=== PATIENT | male | born 1940 | race Caucasian/White ===

== ENCOUNTER 2018-07-04 18:17 | Emergency (ER) | payer OTHER, BC ==
--- OUTSIDE RECORDS SUMMARY | 2018-07-04 18:20 | XMS REPORT | Clinical Summary ---
:1940 Author Organization [facility] Address [address] [place] [id number] Care Team Providers Name Role Phone Edson Bush MD Primary Care Provider Allergies No Known Allergies Current Medications Prescription Sig. Disp. Refills Start Date End Date Status ranolazine (RANEXA) Take 1,000 mg by Active 1,000 mg 12 hr tablet mouth 2 (two) times a day. clopidogrel (PLAVIX) 75 Take 75 mg by mouth Active mg tablet daily. carvedilol (COREG) 25 MG Take 25 mg by mouth Active tablet once. amIODarone (PACERONE) Take 200 mg by mouth Active 200 MG tablet daily. colestipol (COLESTID) 1 Take 1 g by mouth 2 Active gram tablet (two) times a day. PARoxetine (PAXIL) 10 MG Take 40 mg by mouth Active tablet every morning. digOXIN (LANOXIN) 125 Take 125 mcg by Active mcg tablet mouth daily. gabapentin (NEURONTIN) Take 300 mg by mouth Active 300 mg capsule nightly. diazePAM (VALIUM) 5 MG Take 5 mg by mouth Active tablet nightly as needed for anxiety. losartan-hydrochlorothia Take 0.5 tablets by Active zide (HYZAAR) 100-12.5 mouth 2 (two) times mg per tablet a day. acetaminophen-codeine Take 1 tablet by Active (TYLENOL WITH CODEINE mouth every 4 (four) #4) 300-60 mg per tablet hours as needed for moderate pain. Active Problems Not on file Encounters Date Type Specialty Care Team Description 10/09/2017 Hospital Encounter Procedural Rico Solorzano Artificial cardiac Cardiology Timmy Morrison MD pacemaker 10/09/2017 Procedure Pass Procedural Cardiology 10/09/2017 Surgery Procedural Rico Solorzano Ep remove replace Cardiology Timmy Morrison MD pacemaker generator dual [employer] [13119 (CPT)] after 07/03/2017 Social History Tobacco Use Types Packs/Day Years Used Date Current Every Day Smoker Cigarettes 0.75 50 Tobacco Cessation: Ready to Quit: No; Counseling Given: Yes Alcohol Use Drinks/Week oz/Week Comments No Sex Assigned at Date Recorded Not on file Last Filed Vital Signs Vital Sign Reading Time Taken Blood Pressure 164/79 10/09/2017 5:30 PM SIGN ERECTOR AND REPAIRER Pulse 65 10/09/2017 5:30 PM SIGN ERECTOR AND REPAIRER Temperature 35.9 C (96.7 F) 10/09/2017 1:43 PM SIGN ERECTOR AND REPAIRER Respiratory Rate 22 10/09/2017 5:30 PM SIGN ERECTOR AND REPAIRER Oxygen Saturation 95% 10/09/2017 5:30 PM SIGN ERECTOR AND REPAIRER Inhaled Oxygen Concentration - - Weight 112 kg (248 lb) 10/09/2017 12:31 PM SIGN ERECTOR AND REPAIRER Height 185.4 cm (6' 1") 10/09/2017 12:31 PM SIGN ERECTOR AND REPAIRER Body Mass Index 32.72 10/09/2017 12:31 PM SIGN ERECTOR AND REPAIRER Plan of Treatment Not on file Implants Implanted Type Area Silver Wrapper Device Expiration Model / Identifier Date Serial / Lot Assurity Rf Dr - [id number] - [id number] Cardiac N/A: [employer] 03/25/2019 [id number] / Implanted: Qty: 1 on 10/09/2017 by Rico Solorzano Jr., MD Pacemaker N/A MEDICAL [id number] / Generators [id number] Procedures Procedure Name Priority Date/Time Associated Comments Diagnosis EP REMOVE REPLACE Routine 10/09/2017 3:11 Artificial cardiac Results for this PACEMAKER GENERATOR PM SIGN ERECTOR AND REPAIRER pacemaker procedure are in DUAL the results section. ESTIMATED GFR Routine 10/09/2017 12:17 Results for this PM SIGN ERECTOR AND REPAIRER procedure are in the results section. PROTHROMBIN TIME WITH Routine 10/09/2017 12:17 Results for this INR PM SIGN ERECTOR AND REPAIRER procedure are in the results section. HC COMPLETE BLD COUNT Routine 10/09/2017 12:17 Results for this W/AUTO DIFF PM SIGN ERECTOR AND REPAIRER procedure are in the results section. BASIC METABOLIC PANEL Routine 10/09/2017 12:17 Results for this PM SIGN ERECTOR AND REPAIRER procedure are in the results section. after 07/03/2017 Results Cv electrophysiology procedure (10/09/2017 3:11 PM) Narrative Performed At Leads interrogated and functioning normally. HM CUPID A new [employer] generator attached and placed into the pocket after dissection and removal of the old device. Performing Organization Address [facility]/Zipcode Phone Number CUPID [id number] [place] [address] Estimated GFR (10/09/2017 12:17 PM) GFR Non Af Amer 49 (A) mL/min/1.73 m2 [facility] DEPARTMENT OF PATHOLOGY AND GENOMIC MEDICINE GFR Af Amer 60 mL/min/1.73 m2 [facility] DEPARTMENT OF Comment: PATHOLOGY AND GENOMIC Chronic kidney disease: <60 mL/min/1.73m2 MEDICINE Kidney failure: <15 mL/min/1.73m2 The estimated GFR is calculated from the IDMS-traceable Modification of Diet in Renal Disease Equation. The accuracy of the calculation is poor when the creatinine is normal. Calculated values >90 mL/min/1.73m2 are not reported. This equation has not been validated in children (<18 years), women, the elderly (>70 years), or ethnic groups other than Caucasians and Americans. Specimen Plasma specimen Performing Organization Address [facility] Phone Number [facility] DEPARTMENT OF PATHOLOGY [address] [place], [place] [id number] [place] [address] Prothrombin time with INR (10/09/2017 12:17 PM) Prothrombin time 12.8 12.0 - 15.0 sec [facility] DEPARTMENT OF PATHOLOGY AND GENOMIC MEDICINE INR 1.0 [facility] DEPARTMENT OF Comment: PATHOLOGY AND GENOMIC The International Normalized Ratio (INR) is a therapeutic MEDICINE monitoring tool for patients who are stable on oral anticoagulant therapy. An INR of 2.0-3.0 is suggested for deep vein thrombosis/pulmonary embolism. Specimen Blood Performing Organization Address [facility] Phone Number [facility] DEPARTMENT OF PATHOLOGY [address] [place] [address] AND [facility] CBC with platelet and differential (10/09/2017 12:17 PM) WBC 6.8 4.5 - 11.0 k/uL [facility] DEPARTMENT OF PATHOLOGY AND GENOMIC MEDICINE RBC 4.31 (L) 4.40 - 6.00 m/uL [facility] DEPARTMENT OF PATHOLOGY AND GENOMIC MEDICINE HGB 13.5 (L) 14.0 - 18.0 g/dL [facility] DEPARTMENT OF PATHOLOGY AND GENOMIC MEDICINE HCT 42.2 41.0 - 51.0 % [facility] DEPARTMENT OF PATHOLOGY AND GENOMIC MEDICINE MCV 97.9 82.0 - 100.0 fL [facility] DEPARTMENT OF PATHOLOGY AND GENOMIC MEDICINE MCH 31.3 27.0 - 34.0 pg [facility] DEPARTMENT OF PATHOLOGY AND GENOMIC MEDICINE MCHC 32.0 31.0 - 37.0 g/dL [facility] DEPARTMENT OF PATHOLOGY AND GENOMIC MEDICINE RDW - SD 46.0 37.0 - 55.0 fL [facility] DEPARTMENT OF PATHOLOGY AND GENOMIC MEDICINE MPV 10.4 6.9 - 11.0 fL [facility] DEPARTMENT OF PATHOLOGY AND GENOMIC MEDICINE Platelet count 164 150 - 400 K/uL [facility] DEPARTMENT OF PATHOLOGY AND GENOMIC MEDICINE Nucleated RBC 0.00 /100 WBC [facility] DEPARTMENT OF PATHOLOGY AND GENOMIC MEDICINE Neutrophils 59.7 39.0 - 69.0 % [facility] DEPARTMENT OF PATHOLOGY AND GENOMIC MEDICINE Lymphocytes 21.4 (L) 25.0 - 45.0 % [facility] DEPARTMENT OF PATHOLOGY AND GENOMIC MEDICINE Monocytes 13.8 (H) 0.0 - 10.0 % [facility] DEPARTMENT OF PATHOLOGY AND GENOMIC MEDICINE Eosinophils 3.5 0.0 - 5.0 % [facility] DEPARTMENT OF PATHOLOGY AND GENOMIC MEDICINE Basophils 1.0 0.0 - 1.0 % [facility] DEPARTMENT OF PATHOLOGY AND GENOMIC MEDICINE Immature granulocytes 0.6 0.0 - 1.0 % [facility] DEPARTMENT OF PATHOLOGY AND GENOMIC MEDICINE Specimen Blood Performing Organization Address City/State/Zipcode Phone Number [facility] DEPARTMENT OF PATHOLOGY [address] [place] [address] AND [employer] [facility] Basic metabolic panel (10/09/2017 12:17 PM) Sodium 146 135 - 148 mEq/L [facility] DEPARTMENT OF PATHOLOGY AND GENOMIC MEDICINE Potassium 4.2 3.5 - 5.0 mEq/L [facility] DEPARTMENT OF PATHOLOGY AND GENOMIC MEDICINE Chloride 103 98 - 112 mEq/L [facility] DEPARTMENT OF PATHOLOGY AND GENOMIC MEDICINE CO2 32 (H) 24 - 31 mEq/L [facility] DEPARTMENT OF PATHOLOGY AND GENOMIC MEDICINE Anion gap 11 7 - 15 mEq/L [facility] DEPARTMENT OF Comment: PATHOLOGY AND GENOMIC Starting from February , anion gap calculation MEDICINE no longer incorporates potassium. Please note the change. BUN 24 (H) 8 - 23 mg/dL [facility] DEPARTMENT OF PATHOLOGY AND GENOMIC MEDICINE Creatinine 1.4 (H) 0.7 - 1.2 mg/dL [facility] DEPARTMENT OF PATHOLOGY AND GENOMIC MEDICINE Glucose 103 (H) 65 - 99 mg/dL [facility] DEPARTMENT OF PATHOLOGY AND GENOMIC MEDICINE Calcium 9.8 8.8 - 10.2 mg/dL [facility] DEPARTMENT OF PATHOLOGY AND GENOMIC MEDICINE Specimen Plasma specimen Performing Organization Address City/State/Zipcode Phone Number [facility] DEPARTMENT OF PATHOLOGY [address] [address] [place] [address] AND GENOMIC MEDICINE after 07/03/2017 Insurance Payer Benefit Plan / Group Subscriber ID Type Phone Address MEDICARE MEDICARE PART A AND B xxxxxxxxxx Medicare [place], [place] BCBS BCBS CHOICE PPO/[employer] PPO xxxxxxxxxxxx PPO [phone] [place] [id number]
[2018-07-04] MEDS ORDERED: ASPIRIN 81 MG CHEWABLE TABLET ONE (18:33)
[2018-07-04] MEDS ORDERED: ONDANSETRON 4 MG/2 ML VIAL ONE (18:34)
[2018-07-04] MEDS ORDERED: MORPHINE 4 MG/ML SYR ONE (18:34)
[2018-07-04 18:48] LABS: Absolute Lymphocytes (CBC) 1.8 K/uL (0.7-4.9); Absolute Monocytes 0.8 K/uL (0.1-1.3); Absolute Neutrophil 4.4 K/uL (1.8-8.0); Basophils % 0.7 % (0-1.3); Eosinophils % 1.7 % (0-4.4); Hematocrit 42.5 % (39.6-49.0); Lymphocytes % 24.8 % (15.3-44.8); MCH 32.2 pg (27.0-35.0); MCV 96.9 fL (80-100); MPV 9.9 fL (7.6-11.3); Monocytes % 11.4 % (3.3-12.3); RBC Red Blood Cell Count 4.39 M/uL (4.33-5.43)
[2018-07-04] MEDS ORDERED: NITROGLYCERIN/D5W 50 MG/250 ML BTL IV ONE (19:13)
[2018-07-04 19:41] LABS: CKMB Creatine Kinase MB 1.5 ng/mL (0.3-3.6); Magnesium 2.3 mg/dL (1.8-2.4)
--- NOTE | 2018-07-04 20:17 | RAD REPORT ---
EXAM DESCRIPTION: Maryellen Single View07/04/2018 7:07 pm CLINICAL HISTORY: Chest pain COMPARISON: January 2018 FINDINGS: The lungs appear clear of acute infiltrate. The heart is normal size. Pacemaker leads are in place. IMPRESSION: No acute abnormalities displayed
--- NOTE | 2018-07-04 21:52 | ER ---
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 Hx of NC and stent placement. Transition of care: patient was not received from another setting of care. Onset of symptoms was July 04, 2018. Risk Assessment: Do you want to hurt yourself or someone else? Patient reports no desire to harm self or others. Initial Sepsis Screen: Does the patient meet any 2 criteria? No. Patient's initial sepsis screen is negative. Does the patient have a suspected source of infection? No. Patient's initial sepsis screen is negative. Care prior to arrival: None. 18:39 Method Of Arrival: Ambulatory la1 18:39 Acuity: GLENN 2 la1 Historical: - Allergies: 18:42 No Known Allergies; la1 - Home Meds: 18:42 carvedilol 25 mg Oral tab 1 tab 2 times per day [Active]; diazepam 5 mg Oral tab 1 tab la1 as needed [Active]; gabapentin 300 mg Oral cap 1 cap two times per day [Active]; mirtazapine 15 mg Oral TbDL 1 tab bedtime prn [Active]; pantoprazole 40 mg Oral TbEC 1 tab once daily [Active]; paroxetine HCl 40 mg Oral tab 1 tab once daily [Active]; Plavix 75 mg Oral tab 1 tab once daily [Active]; Ranexa 1,000 mg Oral Tb12 1 tab 2 times per day [Active]; sotalol 80 mg Oral tab 1 tab 2 times per day [Active]; Tylenol-Codeine #4 300-60 mg Oral tab 1 tab QID PRN [Active]; valsartan 160 mg Oral tab 1 tab once daily [Active]; Vitamin D 5000 units Oral daily [Active]; - PMHx: 18:42 CHF; Chronic pain; GERD; Hypertension; irregular heart beat; neuropathy; la1 - PSHx: 18:42 stent placement x 2; la1 - Immunization history:: Adult Immunizations up to date. - Social history:: Smoking status: Patient uses tobacco products, smokes one-half pack cigarettes per day. - Family history:: not pertinent. - Ebola Screening: : No symptoms or risks identified at this time. - Hospitalizations: : No recent hospitalization is reported. Screenin:43 Abuse screen: Denies threats or abuse. Nutritional screening: No deficits noted. la1 Tuberculosis screening: No symptoms or risk factors identified. Fall Risk None identified. Assessment: 18:43 Tenecteplase (TNKase) screening: Contraindications: No EKG evidence of Acute Myocardial la1 Infarction with ST elevation. General: Appears uncomfortable, well nourished, Behavior is cooperative, anxious. Pain: Complains of pain in chest Pain radiates to right arm and left arm Pain currently is 6 out of 10 on a pain scale. Quality of pain is described as pressure Pain began 30 min ago. Neuro: Level of Consciousness is awake, alert, obeys commands, Oriented to person, place, time, situation. Cardiovascular: Heart tones S1 S2 present Capillary refill < 3 seconds JVD is absent Patient's skin is warm and dry. Respiratory: Airway is patent Respiratory effort is even, unlabored, Respiratory pattern is regular, symmetrical, Breath sounds are clear bilaterally. GI: No signs and/or symptoms were reported involving the gastrointestinal system. : No signs and/or symptoms were reported regarding the genitourinary system. 19:20 General: Appears in no apparent distress. Behavior is calm, cooperative, appropriate ea for age. General: Physician at bedside updating family on plan of care. Pt denies pain at this time. Physician notified of pt blood pressure. Provider gave orders to place nitro drip on hold. . General: Denies patient denies pain at this time, reports earlier he was having some chest pain but is feeling better now. Pain: Denies pain. Neuro: Level of Consciousness is awake, alert, obeys commands, Oriented to person, place, time, situation. Cardiovascular: Heart tones S1 S2 present Patient's skin is warm and dry. Respiratory: Airway is patent Respiratory effort is even, unlabored, Respiratory pattern is regular, symmetrical. GI: No signs and/or symptoms were reported involving the gastrointestinal system. Bowel sounds present X 4 quads. : No signs and/or symptoms were reported regarding the genitourinary system. Derm: Skin is pink, warm \T\ dry. 20:01 Reassessment: Patient and/or family updated on plan of care and expected duration. Pain ea level reassessed. Patient is alert, oriented x 3, equal unlabored respirations, skin warm/dry/pink. Patient denies pain at this time. 21:04 Reassessment: Patient and/or family updated on plan of care and expected duration. Pain ea level reassessed. Patient is alert, oriented x 3, equal unlabored respirations, skin warm/dry/pink. 22:11 Reassessment: Patient and/or family updated on plan of care and expected duration. Pain ea level reassessed. Patient is alert, oriented x 3, equal unlabored respirations, skin warm/dry/pink. Physician at bedside, pt reports he does not want to stay at the hospital states he wants to go AMA. Verbalized the understanding of possible adverse effects of going AMA. Verbalized the understanding if symptoms occur again to come back to ED. Patient verbalized he would follow up with press breaker tomorrow. Patient denies pain at this time. Patient states feeling better. Patient states symptoms have improved. Vital Signs: 18:40 BP 187 / 87; Pulse 61; Resp 16; Temp 97.9; Pulse Ox 96% on R/A; la1 19:06 BP 167 / 92; Pulse 63; Resp 18; Pulse Ox 95% ; ea 19:13 Weight 107.5 kg; ms 19:53 BP 170 / 88; Pulse 60; Resp 16; Pulse Ox 95% on 2 lpm NC; Pain 0/10; ea 21:01 BP 158 / 77; Pulse 60; Resp 18; Pulse Ox 98% on R/A; ea 22:00 BP 168 / 70; Pulse 60; Resp 18; Temp 97.7; Pulse Ox 100% on R/A; Pain 0/10; ea ED Course: 18:20 Patient arrived in ED. mr 18:20 Edson Bush MD is Private Physician. mr 18:21 [facility] Blanco [facility]. jr8 18:21 Clinton Rick MD is Attending Physician. jr8 18:29 EKG done, by ED staff, reviewed by Clinton Rick MD. jb1 18:37 Fernando Sweet, [place] is Primary Nurse. la1 18:39 Triage completed. la1 18:40 Arm band placed on left wrist. la1 18:43 Inserted saline lock: 20 gauge in right antecubital area, using aseptic technique. la1 Patient maintains SpO2 saturation greater than 95% on room air. 18:44 Placed in gown. Bed in low position. Call light in reach. Side rails up X 1. Adult w/ la1 patient. metal fabricating inspector on. Pulse ox on. NIBP on. 19:05 XRAY Chest (1 view) In Process Unspecified. EDMS 19:10 Attending Physician role handed off by Clinton Rick MD pk 19:10 Cristi Cardenas MD is Attending Physician. pkl 22:16 No provider procedures requiring assistance completed. IV discontinued, intact, ea bleeding controlled, No redness/swelling at site. Pressure dressing applied. Administered Medications: 18:38 Drug: morphine 4 mg Route: IVP; Site: right antecubital; la1 19:02 Follow up: Response: Pain is decreased jb4 18:38 Drug: Zofran 4 mg Route: IVP; Site: right antecubital; la1 19:02 Follow up: Response: Nausea is decreased jb4 18:38 Drug: Aspirin Chewable Tablet 324 mg Route: PO; la1 19:02 Follow up: Response: No adverse reaction jb4 19:41 Not Given (Hemodynamic Parameters): Nitro Drip - (Nitroglycerin 50 mg, D5W 250 ml) IV ea at 5 mcg/min continuous; titrate until desired hemodynamic response. Outcome: 21:52 Discharge ordered by . pkloida 22:16 AMA AMA form signed ea 22:17 Patient left the ED. ea Signatures: Dispatcher [employer] EDNE Michel Artis Pin, MD MD pkl Rivera, Maria Zully Lieberman Clinton Lockett MD MD rn Roszak, Josh, PA PA jr8 Fernando Sweet RN RN la1 Lee Rudd RN RN jb4 Maribel Jaimes RN RN ea Corrections: (The following items were deleted from the chart) 22:14 22:11 Reassessment: Patient and/or family updated on plan of care and expected ea duration. Pain level reassessed. Patient is alert, oriented x 3, equal unlabored respirations, skin warm/dry/pink. Physician at bedside, pt reports he does not want to stay at the hospital states he wants to go AMA. Patient denies pain at this time. Patient states feeling better. Patient states symptoms have improved. ea
--- NOTE | 2018-07-04 21:52 | EDPHYS ---
Physician Documentation [facility] Name: Óscar Rivera Age: 77 yrs Sex: Male : 1940 Arrival Date: 07/04/2018 Time: 18:20 Bed 6 Private MD: Edson Bush V ED Physician Cristi Cardenas HPI: 07/04 18:29 This 77 yrs old Male presents to ER via Unassigned with complaints of Chest rn Pain. 18:29 The patient or guardian reports chest pain that is located primarily in the substernal rn area. Onset: last night. The pain radiates to the left arm. Associated signs and symptoms: Pertinent positives: shortness of breath, Pertinent negatives: abdominal pain, headache, near syncope, palpitations, recent travel, syncope. The chest pain is described as a pressure. Duration: The patient or guardian reports multiple episodes, that are intermittent. Modifying factors: The symptoms are alleviated by nothing. the symptoms are aggravated by nothing. Severity of pain: At its worst the pain was moderate in the emergency department the pain is unchanged. The patient has experienced similar episodes in the past. REports angina episodes since last night, improved with nitro last night, today very active, shopping, has had intermittent chest pressure that radiates to left arm, lasting approx 20 min - 1hour, then became worse and constant over last 40 min, 2 nitro did not help so came in for eval. + 3 previous stents at [facility] and was told there was one vessel that was unable to stent. Normally only has these anginal episodes once/month. + assoc sob. No fever/cough.. Historical: - Allergies: 18:42 No Known Allergies; la1 - Home Meds: 18:42 carvedilol 25 mg Oral tab 1 tab 2 times per day [Active]; diazepam 5 mg Oral tab 1 tab la1 as needed [Active]; gabapentin 300 mg Oral cap 1 cap two times per day [Active]; mirtazapine 15 mg Oral TbDL 1 tab bedtime prn [Active]; pantoprazole 40 mg Oral TbEC 1 tab once daily [Active]; paroxetine HCl 40 mg Oral tab 1 tab once daily [Active]; Plavix 75 mg Oral tab 1 tab once daily [Active]; Ranexa 1,000 mg Oral Tb12 1 tab 2 times per day [Active]; sotalol 80 mg Oral tab 1 tab 2 times per day [Active]; Tylenol-Codeine #4 300-60 mg Oral tab 1 tab QID PRN [Active]; valsartan 160 mg Oral tab 1 tab once daily [Active]; Vitamin D 5000 units Oral daily [Active]; - PMHx: 18:42 CHF; Chronic pain; GERD; Hypertension; irregular heart beat; neuropathy; la1 - PSHx: 18:42 stent placement x 2; la1 - Immunization history:: Adult Immunizations up to date. - Social history:: Smoking status: Patient uses tobacco products, smokes one-half pack cigarettes per day. - Family history:: not pertinent. - Ebola Screening: : No symptoms or risks identified at this time. - Hospitalizations: : No recent hospitalization is reported. ROS: 18:29 Constitutional: Negative for fever, chills, and weight loss, Eyes: Negative for injury, rn pain, redness, and discharge, Neck: Negative for injury, pain, and swelling, Cardiovascular: Negative for palpitations, and edema, Respiratory: Negative for shortness of breath, cough, wheezing, and pleuritic chest pain, Abdomen/GI: Negative for abdominal pain, nausea, vomiting, diarrhea, and constipation, MS/Extremity: Negative for injury and deformity, Skin: Negative for injury, rash, and discoloration, Neuro: Negative for headache, weakness, and seizure. Exam: 18:29 Constitutional: This is a well developed, well nourished patient who is awake, alert, rn appears anxious and uncomfortable Head/Face: Normocephalic, atraumatic. Eyes: Pupils equal round and reactive to light, extra-ocular motions intact. Lids and lashes normal. Conjunctiva and sclera are non-icteric and not injected. Cornea within normal limits. Periorbital areas with no swelling, redness, or edema. Neck: + recent dermatological procedure with ecchymosis under jaw Cardiovascular: Regular rate and rhythm with a normal S1 and S2. No gallops, murmurs, or rubs. Normal PMI, no JVD. No pulse deficits. Respiratory: Lungs have equal breath sounds bilaterally, clear to auscultation and percussion. No rales, rhonchi or wheezes noted. No increased work of breathing, no retractions or nasal flaring. Abdomen/GI: Soft, non-tender, with normal bowel sounds. No distension or tympany. No guarding or rebound. No evidence of tenderness throughout. MS/ Extremity: Pulses equal, no cyanosis. Neurovascular intact. Full, normal range of motion. Equal circumference. Neuro: Awake and alert, GCS 15, oriented to person, place, time, and situation. Cranial nerves II-XII grossly intact. Motor strength 5/5 in all extremities. Sensory grossly intact. Vital Signs: 18:40 BP 187 / 87; Pulse 61; Resp 16; Temp 97.9; Pulse Ox 96% on R/A; la1 19:06 BP 167 / 92; Pulse 63; Resp 18; Pulse Ox 95% ; ea 19:13 Weight 107.5 kg; ms 19:53 BP 170 / 88; Pulse 60; Resp 16; Pulse Ox 95% on 2 lpm NC; Pain 0/10; ea 21:01 BP 158 / 77; Pulse 60; Resp 18; Pulse Ox 98% on R/A; ea 22:00 BP 168 / 70; Pulse 60; Resp 18; Temp 97.7; Pulse Ox 100% on R/A; Pain 0/10; ea MDM: 18:21 Patient medically screened. jr8 19:47 Data reviewed: vital signs, nurses notes, lab test result(s), EKG, radiologic studies, pkl plain films. ED course: Advised observation. Patient wants to be transferred to [facility] where his primary care coordinator practice. No bed available at [facility].. 21:49 ED course: Patient feeling better. Asymptomatic. Does not want to be admitted for pkl observation. Will see his primary care coordinator in the morning for follow up. Patient sign AMA. 07/04 18:29 Order name: Basic Metabolic Panel; Complete Time: 19:51 rn 07/04 18:29 Order name: CBC with Diff; Complete Time: 19:13 rn 07/04 18:29 Order name: Ckmb; Complete Time: :51 rn 07/04 18:29 Order name: CPK; Complete Time: :51 rn 07/04 18:29 Order name: Magnesium; Complete Time: 19:51 rn 07/04 18:29 Order name: NT PRO-BNP; Complete Time: 19:51 rn 07/04 18:29 Order name: PT-INR; Complete Time: 19:13 rn 08/09 18:29 Order name: Ptt, Activated; Complete Time: 19:13 rn 07/04 18:29 Order name: Troponin (emerg Dept Use Only); Complete Time: 19:13 rn 07/04 18:29 Order name: XRAY Chest (1 view); Complete Time: 21:45 rn 07/04 20:34 Order name: Troponin (emerg Dept Use Only); Complete Time: 21:45 pkl 07/04 18:29 Order name: EKG; Complete Time: 18:29 rn 07/04 18:29 Order name: Cardiac monitoring; Complete Time: 18:29 rn 07/04 18:29 Order name: EKG - Nurse/Tech; Complete Time: 18:29 rn 07/04 18:29 Order name: IV Saline Lock; Complete Time: 18:38 rn 07/04 18:29 Order name: Labs collected and sent; Complete Time: 18:39 rn 07/04 18:29 Order name: O2 Per Protocol; Complete Time: 18:29 rn 07/04 18:29 Order name: O2 Sat Monitoring; Complete Time: 18:29 rn 07/04 20:34 Order name: EKG; Complete Time: 20:34 pkl Administered Medications: 18:38 Drug: morphine 4 mg Route: IVP; Site: right antecubital; la1 19:02 Follow up: Response: Pain is decreased jb4 18:38 Drug: Zofran 4 mg Route: IVP; Site: right antecubital; la1 19:02 Follow up: Response: Nausea is decreased jb4 18:38 Drug: Aspirin Chewable Tablet 324 mg Route: PO; la1 19:02 Follow up: Response: No adverse reaction jb4 19:41 Not Given (Hemodynamic Parameters): Nitro Drip - (Nitroglycerin 50 mg, D5W 250 ml) IV ea at 5 mcg/min continuous; titrate until desired hemodynamic response. Disposition: 07/04/18 21:52 Discharged to Home. Impression: Chest pain. - Condition is Stable. - Medication Reconciliation Form, Thank You Letter, Antibiotic Education, Prescription Opioid Use form. - Follow up: Private Physician; When: Tomorrow; Reason: Re-evaluation by your physician. - Problem is new. - Symptoms are resolved. Signatures: Dispatcher MedHo Cristi Christina MD MD pkClinton Godinez MD MD rn Roszak, Josh, FATIMAH PA jr8 Fernando Sweet RN RN la1 Maribel Jaimes RN RN ea Bryson, James RN jb4 Corrections: (The following items were deleted from the chart) 18:32 18:29 Constitutional: Negative for fever, chills, and weight loss, Eyes: Negative for rn injury, pain, redness, and discharge, Neck: Negative for injury, pain, and swelling, Cardiovascular: Negative for palpitations, and edema, Respiratory: Negative for shortness of breath, cough, wheezing, and pleuritic chest pain, Abdomen/GI: Negative for abdominal pain, nausea, vomiting, diarrhea, and constipation, MS/Extremity: Negative for injury and deformity, Skin: Negative for injury, rash, and discoloration, Neuro: Negative for headache, weakness, numbness, tingling, and seizure, rn 22:17 21:52 07/04/2018 21:52 Discharged to Home. Impression: Chest pain. Condition is Stable. ea Forms are Medication Reconciliation Form, Thank You Letter, Antibiotic Education, Prescription Opioid Use. Follow up: Private Physician; When: Tomorrow; Reason: Re-evaluation by your physician. Problem is new. Symptoms are resolved. pkl
[2018-07-04 22:58] VITALS: BP 168/70; TEMP 97.7; O2SAT 100
--- NOTE | 2018-07-05 08:19 | EKG ---
Test Date: 2018-07-04 Test Time: 21:53:12 Curing Bin Operator: VIET MEASUREMENT RESULTS: Intervals: Rate: 61 WA: 200 QRSD: 200 QT: 500 QTc: 503 [place]: P: 37 WA: 200 QRS: -74 T: 90 INTERPRETIVE STATEMENTS: Atrial-sensed ventricular-paced rhythm Abnormal ECG Compared to ECG 01/28/2018 20:34:03 No significant changes Electronically Signed On 07-05-18 08:18:35 CDT by Vikash Canas
--- NOTE | 2018-07-05 08:20 | EKG ---
Test Date: 2018-07-04 Test Time: 18:19:49 Nurse Emergency: MEASUREMENT RESULTS: Intervals: Rate: 63 MT: 224 QRSD: 156 QT: 446 QTc: 456 [place]: P: 54 MT: 224 QRS: -74 T: 103 INTERPRETIVE STATEMENTS: Atrial-sensed ventricular-paced rhythm with prolonged AV conduction with occasional atrial-paced complexes Abnormal ECG Compared to ECG 01/28/2018 20:34:03 No significant changes Electronically Signed On 07-05-18 08:20:05 CDT by Vikash Canas
== END 2018-07-04 22:17 | disposition home or self-care (01) ==
LOC: ER 18:17
DX: R07.9 Chest pain, unspecified (principal); I11.0 Hypertensive heart disease with heart failure; I50.9 Heart failure, unspecified; G89.29 Other chronic pain; K21.9 Gastro-esophageal reflux disease without esophagitis; G62.9 Polyneuropathy, unspecified; F17.210 Nicotine dependence, cigarettes, uncomplicated
CPT/HCPCS: 36415; 71045; 80048; 82550; 82553; 83735; 83880; 84484 ×2; 85025; 85610; 85730; J2405; 93005; 96374; 96375; 99285

== ENCOUNTER 2018-07-17 01:04 | Observation (INO) | payer OTHER, BC ==
--- OUTSIDE RECORDS SUMMARY | 2018-07-17 01:06 | XMS REPORT | Clinical Summary ---
:1940 Author Organization [facility] Address [address] [place] [id number] Care Team Providers Name Role Phone Edson [...] Encounters Date Type Specialty Care Team Description 07/04/2018 Intake Access N/A 10/09/2017 Hospital Encounter Procedural Rico Solorzano Artificial cardiac Cardiology Timmy Morrison MD pacemaker 10/09/2017 Procedure Pass Procedural Cardiology 10/09/2017 Surgery Procedural Rico Solorzano Ep remove replace Cardiology Timmy Morrison MD pacemaker generator dual [employer] [63012 (CPT)] after 07/16/2017 Social History Tobacco Use Types Packs/Day Years Used Date Current Every Day Smoker Cigarettes 0.75 50 Tobacco Cessation: Ready to Quit: No; Counseling Given: Yes Alcohol Use Drinks/Week oz/Week Comments No Sex Assigned at Date Recorded Not on file Last Filed Vital Signs Vital Sign Reading Time Taken Blood Pressure 164/79 10/09/2017 5:30 PM [employer] Pulse 65 10/09/2017 5:30 PM [employer] Temperature 35.9 C (96.7 F) 10/09/2017 1:43 PM [employer] Respiratory Rate 22 10/09/2017 5:30 PM [employer]ER Oxygen Saturation 95% 10/09/2017 5:30 PM [employer] Inhaled Oxygen Concentration - - Weight 112 kg (248 lb) 10/09/2017 12:31 PM [employer] Height 185.4 cm (6' 1") 10/09/2017 12:31 PM [employer] Body Mass Index 32.72 10/09/2017 12:31 PM [employer]ER Plan of Treatment Not on file Implants Implanted Type Area Bank Teller Machine Mechanic Device Expiration Model / Identifier Date Serial / Lot Assurity Rf Dr - [id number] - [id number] Cardiac N/A: [employer] 03/25/2019 [id number] / Implanted: Qty: 1 on 10/09/2017 by Rico Solorzano Jr., MD Pacemaker N/A MEDICAL [id number] / Generators [id number] Procedures Procedure Name Priority Date/Time Associated Comments Diagnosis EP REMOVE REPLACE Routine 10/09/2017 3:11 Artificial cardiac Results for this PACEMAKER GENERATOR PM [employer] pacemaker procedure are in DUAL the results section. ESTIMATED GFR Routine 10/09/2017 12:17 Results for this PM [employer] procedure are in the results section. PROTHROMBIN TIME WITH Routine 10/09/2017 12:17 Results for this INR PM [employer] procedure are in the results section. HC COMPLETE BLD COUNT Routine 10/09/2017 12:17 Results for this W/AUTO DIFF PM [employer] procedure are in the results section. BASIC METABOLIC PANEL Routine 10/09/2017 12:17 Results for this PM [employer] procedure are in the results section. after 07/16/2017 Results Cv electrophysiology procedure (10/09/2017 3:11 PM) Narrative Performed At Leads interrogated and functioning normally. HM CUPID A new [employer] generator attached and placed into the pocket after dissection and removal of the old device. Performing Organization Address City/[facility]/Zipcode Phone Number CUPID [id number] [place] [address] Estimated GFR (10/09/2017 12:17 PM) GFR Non Af Amer 49 (A) mL/min/1.[address] [facility] OF PATHOLOGY AND GENOMIC MEDICINE GFR Af Amer 60 mL/min/1.[address] [facility] DEPARTMENT OF Comment: PATHOLOGY AND GENOMIC Chronic [...] Americans. Specimen Plasma specimen Performing Organization Address [facility] [email or web address] Phone Number [facility] DEPARTMENT OF PATHOLOGY [address] [place] [address] AND [facility] Prothrombin time with INR (10/09/2017 12:17 PM) Prothrombin time 12.8 12.0 - 15.[address] [facility] DE[facility] OF PATHOLOGY AND GENOMIC MEDICINE INR [address] [facility] DEPARTMENT OF Comment: PATHOLOGY AND GENOMIC The International Normalized Ratio (INR) is a therapeutic MEDICINE monitoring tool for patients who are stable on oral anticoagulant therapy. An INR of 2.0-3.0 is suggested for deep vein thrombosis/pulmonary embolism. Specimen Blood Performing Organization Address [facility] [email or web address] Phone Number [facility] DEPARTMENT OF PATHOLOGY [address] [place] [address] AND [facility] CBC with platelet and differential (10/09/2017 12:17 PM) WBC 6.8 4.5 - 11.0 k/uL [facility] OF PATHOLOGY AND GENOMIC MEDICINE RBC 4.31 (L) 4.40 - 6.00 m/uL [facility] OF PATHOLOGY AND GENOMIC MEDICINE HGB 13.5 (L) 14.0 - 18.0 g/dL [facility] OF PATHOLOGY AND GENOMIC MEDICINE HCT 42.2 41.0 - 51.0 % [facility] OF PATHOLOGY AND GENOMIC MEDICINE MCV 97.9 82.0 - 100.[address] [facility] OF PATHOLOGY AND GENOMIC MEDICINE MCH 31.3 27.0 - 34.[address] [facility] OF PATHOLOGY AND GENOMIC MEDICINE MCHC 32.0 31.0 - 37.0 g/dL [facility] OF PATHOLOGY AND GENOMIC MEDICINE RDW - SD 46.0 37.0 - 55.[address] [facility] OF PATHOLOGY AND GENOMIC MEDICINE MPV 10.4 6.9 - 11.[address] [facility] OF PATHOLOGY AND GENOMIC MEDICINE Platelet count 164 150 - 400 K/uL [facility] OF PATHOLOGY AND GENOMIC MEDICINE Nucleated RBC 0.00 /[address] [facility] OF PATHOLOGY AND GENOMIC MEDICINE Neutrophils 59.7 39.0 - 69.0 % [facility] OF PATHOLOGY AND GENOMIC MEDICINE Lymphocytes 21.4 (L) 25.0 - 45.0 % [facility] OF PATHOLOGY AND GENOMIC MEDICINE Monocytes 13.8 (H) 0.0 - 10.0 % [facility] OF PATHOLOGY AND GENOMIC MEDICINE Eosinophils 3.5 0.0 - 5.0 % [facility] OF PATHOLOGY AND GENOMIC MEDICINE Basophils 1.0 0.0 - 1.0 % [facility] OF PATHOLOGY AND GENOMIC MEDICINE Immature granulocytes 0.6 0.0 - 1.0 % [facility] OF PATHOLOGY AND GENOMIC MEDICINE Specimen Blood Performing Organization Address City/State/Zipcode Phone Number [facility] DEPARTMENT OF PATHOLOGY [address] [place] [address] AND [employer] [facility] Basic metabolic panel (10/09/2017 12:17 PM) Sodium 146 135 - 148 mEq/L [facility] OF PATHOLOGY AND GENOMIC MEDICINE Potassium 4.2 3.5 - 5.0 mEq/L [facility] OF PATHOLOGY AND GENOMIC MEDICINE Chloride 103 98 - 112 mEq/L [facility] OF PATHOLOGY AND GENOMIC MEDICINE CO2 32 (H) 24 - 31 mEq/L [facility] OF PATHOLOGY AND GENOMIC MEDICINE Anion gap 11 7 - 15 mEq/L [facility] DEPARTMENT OF Comment: PATHOLOGY AND GENOMIC Starting from February , anion gap calculation MEDICINE no longer incorporates potassium. Please note the change. BUN 24 (H) 8 - 23 mg/dL [facility] OF PATHOLOGY AND GENOMIC MEDICINE Creatinine 1.4 (H) 0.7 - 1.2 mg/dL [facility] OF PATHOLOGY AND GENOMIC MEDICINE Glucose 103 (H) 65 - 99 mg/dL [facility] OF PATHOLOGY AND GENOMIC MEDICINE Calcium 9.8 8.8 - 10.2 mg/dL [facility] OF PATHOLOGY AND GENOMIC MEDICINE Specimen Plasma specimen Performing Organization Address City/State/Zipcode Phone Number [facility] DEPARTMENT OF PATHOLOGY [address] [place] [address] AND GENOMIC MEDICINE after 07/16/2017 Insurance Payer Benefit Plan / Group Subscriber ID Type Phone Address MEDICARE MEDICARE PART A AND B xxxxxxxxxx Medicare [place] BCBS BCBS CHOICE PPO/[employer] EMPL PPO xxxxxxxxxxxx PPO Home: [address] [place] [phone] [place] [phone]
[2018-07-17] MEDS ORDERED: ONDANSETRON 4 MG/2 ML VIAL ONE ×2 (01:33→03:07)
[2018-07-17 01:37] LABS: Absolute Lymphocytes (CBC) 1.1 K/uL (0.7-4.9); Absolute Neutrophil 5.7 K/uL (1.8-8.0); Basophils % 0.6 % (0-1.3); Eosinophils % 1.1 % (0-4.4); Hematocrit 36.6 % (39.6-49.0); Lymphocytes % 14.1 % (15.3-44.8); MCV 94.8 fL (80-100); MPV 9.8 fL (7.6-11.3); Monocytes % 12.6 % (3.3-12.3); RBC Red Blood Cell Count 3.86 M/uL (4.33-5.43)
[2018-07-17 01:53] LABS: Protime INR 1.15
[2018-07-17 02:04] LABS: Bilirubin Direct 0.2 mg/dL (0-0.2); Bilirubin Total 0.6 mg/dL (0.2-1.0); CKMB Creatine Kinase MB 1.8 ng/mL (0.3-3.6); Magnesium 1.8 mg/dL (1.8-2.4); Potassium 3.7 mmol/L (3.5-5.1); Protein, Total 6.7 g/dL (6.4-8.2)
[2018-07-17] MEDS ORDERED: NITROGLYCERIN 0.4 MG/TAB SL ONE (02:17)
--- NOTE | 2018-07-17 02:33 | EDPHYS ---
Physician Documentation [facility] Name: Óscar Rivera Age: 77 yrs Sex: Male : 1940 Arrival Date: 07/17/2018 Time: 01:04 Bed 5 Private MD: Edson Bush V ED Physician Jed Worley HPI: 07/17 02:06 This 77 yrs old Male presents to ER via Wheelchair with complaints of Chest tw4 Pain > 30 y/o, Nausea, Congestion. 02:06 The patient or guardian reports chest pain that is located primarily in the anterior tw4 chest wall, left. Onset: just prior to arrival, today. The pain does not radiate. Associated signs and symptoms: Pertinent positives: shortness of breath. The chest pain is described as a heaviness, a pressure. Duration: The patient or guardian reports a single episode. Modifying factors: The symptoms are alleviated by nothing. the symptoms are aggravated by nothing. Severity of pain: At its worst the pain was mild in the emergency department the pain is unchanged. The patient has experienced similar episodes in the past, a few times. The patient has been recently seen by a physician: Historical: - Allergies: 01:21 No Known Allergies; lp1 - Home Meds: 01:21 irbesartan oral oral [Active]; sotalol 80 mg Oral tab 1 tab 2 times per day [Active]; lp1 pantoprazole 40 mg Oral TbEC 1 tab once daily [Active]; Ranexa 1,000 mg Oral Tb12 1 tab 2 times per day [Active]; paroxetine HCl 40 mg Oral tab 1 tab once daily [Active]; Plavix 75 mg Oral tab 1 tab once daily [Active]; carvedilol 25 mg Oral tab 1 tab daily [Active]; Vitamin D3 5,000 unit oral tab daily [Active]; gabapentin 300 mg Oral cap 1 cap two times per day [Active]; mirtazapine 15 mg Oral TbDL 1 tab bedtime prn [Active]; Tylenol-Codeine #4 300-60 mg Oral tab for Pain [Active]; diazepam 5 mg Oral tab 1 tab as needed [Active]; - PMHx: 01:21 CHF; Chronic pain; GERD; Hypertension; irregular heart beat; neuropathy; lp1 - PSHx: 01:21 Pacemaker; Heart stents x3; R knee replacement; Cholecystectomy; lp1 - Immunization history:: Adult Immunizations up to date. - Social history:: Smoking status: Patient/guardian denies using tobacco. - Ebola Screening: : No symptoms or risks identified at this time. ROS: 02:06 Constitutional: Negative for fever, chills, and weight loss, Eyes: Negative for injury, tw4 pain, redness, and discharge, ENT: Negative for injury, pain, and discharge. 02:06 Abdomen/GI: Negative for abdominal pain, nausea, vomiting, diarrhea, and constipation, Back: Negative for injury and pain, MS/Extremity: Negative for injury and deformity, Skin: Negative for injury, rash, and discoloration, Neuro: Negative for headache, weakness, numbness, tingling, and seizure. 02:06 Cardiovascular: Positive for chest pain, Negative for edema, orthopnea, palpitations. 02:06 Respiratory: Positive for shortness of breath, at rest. Negative for cough, dyspnea on exertion, hemoptysis, orthopnea. Exam: 02:06 Constitutional: This is a well developed, well nourished patient who is awake, alert, tw4 and in no acute distress. Head/Face: Normocephalic, atraumatic. Chest/axilla: Normal chest wall appearance and motion. Nontender with no deformity. No lesions are appreciated. Cardiovascular: Regular rate and rhythm with a normal S1 and S2. No gallops, murmurs, or rubs. Normal PMI, no JVD. No pulse deficits. Respiratory: Lungs have equal breath sounds bilaterally, clear to auscultation and percussion. No rales, rhonchi or wheezes noted. No increased work of breathing, no retractions or nasal flaring. Abdomen/GI: Soft, non-tender, with normal bowel sounds. No distension or tympany. No guarding or rebound. No evidence of tenderness throughout. Back: No spinal tenderness. No costovertebral tenderness. Full range of motion. MS/ Extremity: Pulses equal, no cyanosis. Neurovascular intact. Full, normal range of motion. Neuro: Awake and alert, GCS 15, oriented to person, place, time, and situation. Cranial nerves II-XII grossly intact. Motor strength 5/5 in all extremities. Sensory grossly intact. Cerebellar exam normal. Normal gait. Vital Signs: 01:17 BP 156 / 94; Pulse 62; Resp 20; Pulse Ox 95% on R/A; Weight 110.68 kg; Height 6 ft. 1 lp1 in. (185.42 cm); 01:59 BP 137 / 87; Pulse 60; Resp 14; Pulse Ox 96% ; bp 02:34 BP 154 / 87; Pulse 63; Resp 17; Pulse Ox 95% ; bp 03:00 BP 149 / 79; Pulse 60; Resp 18; Pulse Ox 94% ; bp 01:17 Body Mass Index 32.19 (110.68 kg, 185.42 cm) lp1 MDM: 01:06 Patient medically screened. tw4 02:06 Differential diagnosis: pancreatitis, peptic ulcer disease, pulmonary embolus, stable tw4 angina. Data reviewed: vital signs, nurses notes. Counseling: I had a detailed discussion with the patient and/or guardian regarding: the historical points, exam findings, and any diagnostic results supporting the discharge/admit diagnosis. 07/17 01:09 Order name: Basic Metabolic Panel tw4 07/17 01:09 Order name: CBC with Diff tw4 07/17 01:09 Order name: Ckmb tw4 07/17 01:09 Order name: CPK tw4 07/17 01:09 Order name: LFT's tw4 07/17 01:09 Order name: Magnesium tw4 07/17 01:09 Order name: NT PRO-BNP tw4 07/17 01:09 Order name: PT-INR tw4 07/17 01:09 Order name: Ptt, Activated tw4 07/17 01:09 Order name: Troponin (emerg Dept Use Only) tw4 07/17 03:19 Order name: Basic Metabolic Panel EDMS 07/17 03:19 Order name: Basic Metabolic Panel EDMS 07/17 03:19 Order name: CBC with Automated Diff EDMS 07/17 03:19 Order name: CBC with Automated Diff EDMS 07/17 01:09 Order name: XRAY Chest (1 view) tw4 07/17 01:09 Order name: EKG; Complete Time: 01:10 tw4 07/17 01:09 Order name: Cardiac monitoring; Complete Time: 01:21 tw4 07/17 01:09 Order name: EKG - Nurse/Tech; Complete Time: : tw4 07/17 01:09 Order name: IV Saline Lock; Complete Time: 01: tw4 07/17 01:09 Order name: Labs collected and sent; Complete Time: tw4 07/17 03:19 Order name: EKG Electrocardiogram EDFL 07/17 03:19 Order name: EKG Electrocardiogram EDFL 07/17 03:19 Order name: EKG Electrocardiogram EDFL 07/17 03:19 Order name: EKG Electrocardiogram EDFL 07/17 03:19 Order name: Troponin I EDFL 07/17 03:19 Order name: Troponin I EDFL 07/17 03:19 Order name: Troponin I EDFL 07/17 01:09 Order name: O2 Per Protocol; Complete Time: : tw4 07/17 01:09 Order name: O2 Sat Monitoring; Complete Time: EC:42 Rate is 60 beats/min. Rhythm is regular. QRS [place] is Normal. QRS interval is normal. No tw4 Q waves. T waves are Inverted in leads III, aVF. ST Segment is depressed in leads II, V2, V3, V4, V5, V6. Clinical impression: Cardiac ischemia. Interpreted by me. Reviewed by me. Administered Medications: 01:36 Drug: Zofran 4 mg Route: IVP; Site: right wrist; bp 02:10 Follow up: Response: No adverse reaction; Nausea is decreased bp 02:12 Drug: Nitroglycerin 0.4 mg Route: Sublingual; bp 02:45 Drug: Nitroglycerin 0.4 mg Route: Sublingual; bp 03:51 Follow up: Response: Pain is decreased bp 03:06 Drug: Zofran 4 mg Route: IVP; Site: right wrist; bp 03:06 Follow up: Response: Nausea is decreased bp Disposition: 07/17/18 02:32 Hospitalization ordered by Edson Bush for Observation. Preliminary diagnosis are Angina pectoris, unspecified, Acute coronary syndrome. - Bed requested for Telemetry/MedSurg (observation). - Status is Observation. bp - Condition is Stable. - Problem is an ongoing problem. - Symptoms are unchanged. UTI on Admission? No Signatures: Dispatcher [employer] EDMS Saranya Montiel RN RN lp1 Lois Valle RN RN Erik Ann RN RN bp Wadley, Terrence, MD MD tw4 Corrections: (The following items were deleted from the chart) 03:35 02:32 Hospitalization Ordered by Edson Bush MD for Observation. Preliminary diagnosis cg is Angina pectoris, unspecified; Acute coronary syndrome. Bed requested for Telemetry/MedSurg (observation). Status is Observation. Condition is Stable. Problem is an ongoing problem. Symptoms are unchanged. UTI on Admission? No. tw4 04:06 03:35 07/17/2018 02:32 Hospitalization Ordered by Edson Bush MD for Observation. bp Preliminary diagnosis is Angina pectoris, unspecified; Acute coronary syndrome. Bed requested for Telemetry/MedSurg (observation). Status is Observation. Condition is Stable. Problem is an ongoing problem. Symptoms are unchanged. UTI on Admission? No. cg
--- NOTE | 2018-07-17 02:33 | ER ---
Nurse's Notes [facility] Name: Óscar Rivera Age: 77 yrs Sex: Male : 1940 Arrival Date: 07/17/2018 Time: 01:04 Bed 5 Private MD: Edson Bush V Diagnosis: Angina pectoris, unspecified;Acute coronary syndrome Presentation: 07/17 01:16 Presenting complaint: Patient states: Complaint of chest congestion, chest pain lp1 radiating to left arm, nausea; States seeing PCP yesterday for chest congestion and took first dose of Levofloxacin 500mg tab; Has felt nausea since taking medication. Transition of care: patient was not received from another setting of care. Onset of symptoms was July 17, 2018. Risk Assessment: Do you want to hurt yourself or someone else? Patient reports no desire to harm self or others. Initial Sepsis Screen: Does the patient meet any 2 criteria? No. Patient's initial sepsis screen is negative. Does the patient have a suspected source of infection? No. Patient's initial sepsis screen is negative. Care prior to arrival: None. 01:16 Method Of Arrival: Wheelchair lp1 01:16 Acuity: GLENN 2 bb Historical: - Allergies: 01:21 No Known Allergies; lp1 - Home Meds: 01:21 irbesartan oral oral [Active]; sotalol 80 mg Oral tab 1 tab 2 times per day [Active]; lp1 pantoprazole 40 mg Oral TbEC 1 tab once daily [Active]; Ranexa 1,000 mg Oral Tb12 1 tab 2 times per day [Active]; paroxetine HCl 40 mg Oral tab 1 tab once daily [Active]; Plavix 75 mg Oral tab 1 tab once daily [Active]; carvedilol 25 mg Oral tab 1 tab daily [Active]; Vitamin D3 5,000 unit oral tab daily [Active]; gabapentin 300 mg Oral cap 1 cap two times per day [Active]; mirtazapine 15 mg Oral TbDL 1 tab bedtime prn [Active]; Tylenol-Codeine #4 300-60 mg Oral tab for Pain [Active]; diazepam 5 mg Oral tab 1 tab as needed [Active]; - PMHx: 01:21 CHF; Chronic pain; GERD; Hypertension; irregular heart beat; neuropathy; lp1 - PSHx: 01:21 Pacemaker; Heart stents x3; R knee replacement; Cholecystectomy; lp1 - Immunization history:: Adult Immunizations up to date. - Social history:: Smoking status: Patient/guardian denies using tobacco. - Ebola Screening: : No symptoms or risks identified at this time. Screenin:20 Abuse screen: Denies threats or abuse. Denies injuries from another. Nutritional bp screening: No deficits noted. Tuberculosis screening: No symptoms or risk factors identified. Fall Risk None identified. Assessment: 01:22 General: Appears distressed, uncomfortable, obese, Behavior is cooperative, appropriate bp for age, anxious. Pain: Complains of pain in chest Pain began 30 min ago. Neuro: Level of Consciousness is awake, alert, obeys commands, Oriented to person, place, time, situation, Appropriate for age. Cardiovascular: Reports chest pain, Rhythm is NO PACER ACTIVITY NOTED ON EKG OR MONITOR. Respiratory: Airway is patent Respiratory effort is even, unlabored, Respiratory pattern is regular, symmetrical. GI: Reports nausea. : No signs and/or symptoms were reported regarding the genitourinary system. EENT: No deficits noted. Derm: No deficits noted. Musculoskeletal: Circulation, motion, and sensation intact. Range of motion: intact in all extremities. 01:23 Pain: Pain radiates to chest and anterior aspect of left shoulder. bp 01:34 Reassessment: [facility]TA[facility] FOR PACER INTERROGATION. bp 01:58 Reassessment: RESPONSE FROM [facility]: THEY DO NOT RESPOND AT NIGHT UNLESS PT'S HR bp BELOW 60, BUT ARE WILLING TO COME INTERROGATE IN THE AM, MD AWARE. 02:10 Reassessment: PT C/O INCREASING CP, TROP AND BNP NOTED TO BE ELEVATED, MD NOTIFIED. bp 02:34 Reassessment: DR BUSH ACCEPTING ADMIT OF PT, VS STABLE ON MONITOR. bp 03:00 Reassessment: ADMIT IN PROCESS, PT STATES CP IMPROVES WITH NTG. bp Vital Signs: 01:17 BP 156 / 94; Pulse 62; Resp 20; Pulse Ox 95% on R/A; Weight 110.68 kg; Height 6 ft. 1 lp1 in. (185.42 cm); 01:59 BP 137 / 87; Pulse 60; Resp 14; Pulse Ox 96% ; bp 02:34 BP 154 / 87; Pulse 63; Resp 17; Pulse Ox 95% ; bp 03:00 BP 149 / 79; Pulse 60; Resp 18; Pulse Ox 94% ; bp 01:17 Body Mass Index 32.19 (110.68 kg, 185.42 cm) lp1 ED Course: 01:04 Patient arrived in ED. am2 01:05 Edson Bush MD is Private Physician. am2 01:06 Jed Worley MD is Attending Physician. tw4 01:07 Erik Ann RN is Primary Nurse. bp 01:17 Triage completed. lp1 01:17 Arm band placed on left wrist. lp1 01:20 Patient has correct armband on for positive identification. Placed in gown. Bed in low bp position. Call light in reach. Side rails up X2. Adult w/ patient. child monitor on. Pulse ox on. NIBP on. 01:20 Inserted saline lock: 20 gauge in right wrist, using aseptic technique. Patient bp maintains SpO2 saturation greater than 95% on room air. 01:28 X-ray completed. Portable x-ray completed in exam room. Patient tolerated procedure kw well. 01:29 XRAY Chest (1 view) In Process Unspecified. EDMS 02:21 Edson Bush MD is Hospitalizing Provider. tw4 03:10 No provider procedures requiring assistance completed. Patient admitted, IV remains in bp place. Administered Medications: 01:36 Drug: Zofran 4 mg Route: IVP; Site: right wrist; bp 02:10 Follow up: Response: No adverse reaction; Nausea is decreased bp 02:12 Drug: Nitroglycerin 0.4 mg Route: Sublingual; bp 02:45 Drug: Nitroglycerin 0.4 mg Route: Sublingual; bp 03:51 Follow up: Response: Pain is decreased bp 03:06 Drug: Zofran 4 mg Route: IVP; Site: right wrist; bp 03:06 Follow up: Response: Nausea is decreased bp Outcome: 02:32 Decision to Hospitalize by Provider. tw4 03:11 Condition: stable bp 03:11 Instructed on the need for admit. 04:05 Admitted to Tele accompanied by tech, family with patient, via wheelchair, room 409, bp with chart, Report called to GLENYS HANNAH 04:06 Patient left the ED. bp Signatures: Dispatcher [employer] EDDE Verna Rivera RN RN bb Flavia Westbrook Laura, RN RN lp1 Cynthia Matos am2 Erik Ann RN RN bp Jed Worley MD MD tw4 Corrections: (The following items were deleted from the chart) 01:33 01:16 Acuity: GLENN 3 lp1 bb
[2018-07-17] MEDS ORDERED: ACETAMINOPHEN 500 MG TAB PO PRN (03:17)
[2018-07-17 05:22] VITALS: BMI 32.1
[2018-07-17] MEDS ORDERED: DIAZEPAM 5 MG TABLET PO PRN (06:49)
[2018-07-17] MEDS ORDERED: MIRTAZAPINE 15 MG TAB PO PRN (06:49)
[2018-07-17] MEDS ORDERED: HOME MED 1 EA UNK (Acetaminophen With Codeine [Tylenol With Codeine #4 Tablet] 1 TAB) PO PRN (06:49)
--- NOTE | 2018-07-17 07:18 | EKG ---
Test Date: 2018-07-17 Test Time: 01:07:47 Camera Maker: EZEQUIEL MEASUREMENT RESULTS: Intervals: Rate: 60 CT: 244 QRSD: 102 QT: 424 QTc: 424 [place]: P: 21 CT: 244 QRS: 1 T: -43 INTERPRETIVE STATEMENTS: Sinus rhythm with 1st degree AV block ST & T wave abnormality, consider inferior ischemia ST & T wave abnormality, consider anterolateral ischemia Abnormal ECG Compared to ECG 07/04/2018 21:53:12 First degree AV block now present ST (T wave) deviation now present Possible ischemia now present Atrial-sensed ventricular-paced complex(es) or rhythm no longer present Electronically Signed On 07-17-18 07:17:47 CDT by Vikash Canas
[2018-07-17 08:56] VITALS: BP 179/90
--- NOTE | 2018-07-17 08:56 | RAD REPORT ---
EXAM DESCRIPTION: RAD - Chest Single View - 07/17/2018 1:28 am CLINICAL HISTORY: Chest pain, cough and congestion COMPARISON: July 04 TECHNIQUE: AP portable chest image was obtained 0122 hours . FINDINGS: Lung volumes are low. Right hemidiaphragm elevation is again noted further reducing right hemithorax volume. No new mass or consolidation identifiable. Acute failure is doubtful. Heart size i s normal range. Left subclavian pacemaker remains in place. No measurable pleural effusion and no pne umothorax. No gross bony abnormality seen. No acute aortic findings suspected. IMPRESSION: Shallow inspiration film without acute cardiopulmonary findings. No significant change from comparison.
[2018-07-17] MEDS ORDERED: SOTALOL HCL 80 MG TAB PO SCH (09:00)
[2018-07-17] MEDS ORDERED: CLOPIDOGREL 75 MG TABLET PO SCH (09:00)
[2018-07-17] MEDS ORDERED: ASPIRIN EC 81 MG TAB PO SCH (09:00)
[2018-07-17] MEDS ORDERED: PREGABALIN 75 MG CAP PO SCH (09:00)
[2018-07-17] MEDS ORDERED: ENOXAPARIN 100 MG/ML SYR SQ SCH (09:00)
[2018-07-17] MEDS ORDERED: PANTOPRAZOLE 40MG TABLET PO SCH (09:00)
[2018-07-17] MEDS ORDERED: PARoxetine HCl 10 MG TAB PO SCH (09:00)
[2018-07-17] MEDS ORDERED: CARVEDILOL 25 MG TAB PO SCH (09:00)
[2018-07-17 09:05] VITALS: O2SAT 92
[2018-07-17 09:49] VITALS: TEMP 97
[2018-07-17] MEDS ORDERED: GUAIFENESIN/DM 5 ML UCUP PO PRN (11:02)
--- NOTE | 2018-07-17 12:19 | P.SSS ---
Patient History Date of Service: 07/17/18 Reason for admission: CHEST PAIN History of Present Illness: MR. ELLISON CAME WITH NAUSEA AFTER HE TOOK LEVAQUIN ON EMPTY STOMACH, LATER HAD CHEST PAIN AND RADIATION TO L ARM. HIS EKG SHOWS ANTERIOR AND INFEROLATERAL ISCHEMIA. HIS TROPOIN IS0.38 MAX. HE IS PAINFREE. HE GOES TO DR COLMENARES AND HAD CATH DONE 6 MONTHS AGO THAT WAS NEGATIVE. HE WAS AT OFFICE YESTERDAY WITH CONGESTION AND COUGH AND IS TO BE ON ABX FOR IT. HE IS GETTING IMPATIENT. HE IS ANGRY AT HOSPITAL. I CALLED DR. COLMENARES AND HE IS OUT OF COUNTRY. HE HAS NO REAL DOCTOR COVERING HIM. I ASKED [employer] TO GET ME ONE AND THEY KEPT ME ON HOLD FOR 10 MINUTES. PATIENT HAS DECIDED TO GO AMA I CAN'T RELEASE HIM WITH ABN EKG AND HIGH TROPONIN. DR. PAULSON HAS BEEN CONSULTED BUT PATIENT WENT BEFORE HE GETS TO BE SEEN BY HIM. Allergies No Known Drug Allergies Allergy (Verified 01/28/18 22:33) none No Known Allergies Allergy (Uncoded 07/04/18 22:22) Unknown Home Medications: Clopidogrel Bisulfate [Plavix*] 75 mg PO DAILY 04/10/14 Ranolazine [Ranexa] 1,000 mg PO BID 04/10/14 Paroxetine HCl 40 mg PO DAILY 02/20/16 Carvedilol 25 mg PO BID 08/09/17 Gabapentin [Neurontin*] 300 mg PO TID 08/09/17 Acetaminophen with Codeine [Tylenol with Codeine #4 Tablet] 1 tab PO TIDP PRN Cholecalciferol (Vitamin D3) [Vitamin D3] 5,000 unit PO DAILY 01/28/18 Mirtazapine 15 mg PO BEDTIME PRN PRN 01/28/18 Pantoprazole Sodium 40 mg PO DAILY 01/28/18 Sotalol HCl [Betapace] 80 mg PO BID 01/28/18 diazePAM [Diazepam] 5 mg PO BIDP PRN 01/28/18 Digoxin [Lanoxin*] 1 tab PO BEDTIME 07/17/18 Pregabalin [Lyrica*] 1 cap PO TID 07/17/18 - Past Medical/Surgical History Has patient received pneumonia vaccine in the past: Yes Diabetic: No -: HTN -: Hyperlipidemia -: copd -: ID -: chronic pain -: neuropathy -: irregular heart beat -: Coronary stents x3 -: right knee surgery -: throat surgery -: pacemaker -: joseph - Family History Mother -: Cancer Notes: stomach cancer Father -: Heart disease - Social History Smoking Status: Current every day smoker Alcohol use: No CD- Drugs: No Caffeine use: Yes Place of Residence: Home Review of Systems 10-point ROS is otherwise unremarkable Respiratory: Cough Physical Examination - Vital Signs Temperature: 97.0 F Blood Pressure: 179/90 Pulse: 60 Respirations: 18 Pulse Ox (%): 94 - Physical Exam General: Alert, In no apparent distress, Obese HEENT: Atraumatic, PERRLA, Mucous membr. moist/pink, EOMI, Sclerae nonicteric Neck: Supple, 2+ carotid pulse no bruit, No LAD, Without JVD or thyroid abnormality Respiratory: Clear to auscultation bilaterally, Normal air movement Cardiovascular: Regular rate/rhythm, Normal S1 S2 Gastrointestinal: Normal bowel sounds, No tenderness Musculoskeletal: No tenderness Integumentary: No rashes Neurological: Normal gait, Normal speech, Normal strength at 5/5 x4 extr, Normal tone, Normal affect Lymphatics: No axilla or inguinal lymphadenopathy - Studies Laboratory Data (last 24 hrs) 07/17/18 01:23: PT 13.6 H, INR 1.15, APTT 30.5 07/17/18 01:23: WBC 8.0, Hgb 12.4 L, Hct 36.6 L, Plt Count 180 D 07/17/18 01:23: Sodium 142, Potassium 3.7, BUN 12, Creatinine 1.10, Glucose 125 H, Magnesium 1.8 D, Total Bilirubin 0.6, AST 13 L, ALT 18, Alkaline Phosphatase 85 - Diagnosis (Problem(s)) (1) NSTEMI (non-ST elevated myocardial infarction) Current Visit: Yes Status: Acute Plan: PER LAB AND EKG HE MAY HAVE CAD INDUCED CHEST PAIN. LOVENOX SC PLAVIX PO CONSULT CARDIOLOGY HE WENT AMA WITHOUT SEEING LOCAL RN STAFF. - Disposition Disposition: AMA-LEFT AGAINST MEDICAL ADVIC Condition: SERIOUS
--- NOTE | 2018-07-17 13:07 | ECHO ---
HEIGHT: 6 ft 1 in WEIGHT: 244 lb 0 oz DATE OF STUDY: 07/17/[address]: Edson Bush MD 2-DIMENSIONAL: YES M.MODE: YES DOPPLER: YES COLOR FLOW: YES TDS: NO PORTABLE: NO DEFINITY: NO BUBBLE STUDY: NO DIAGNOSIS: EDEMA, DYSPNEA CARDIAC HISTORY: CATHERIZATION: YES SURGERY: NO PROSTHETIC VALVE: NO PACEMAKER: YES MEASUREMENTS (cm) DIASTOLIC (NORMALS) SYSTOLIC (NORMALS) IVSd 1.3 (0.6-1.2) LA Diam 4.7 (1.9-4.0) LVEF 55% LVIDd 4.9 (3.5-5.7) LVIDs 3.5 (2.0-3.5) %FS 29% LVPWd 1.4 (0.6-1.2) Ao Diam 3.0 (2.0-3.7) 2 DIMENSIONAL ASSESSMENT: RIGHT ATRIUM: NORMAL LEFT ATRIUM: DILATED RIGHT VENTRICLE: NORMAL LEFT VENTRICLE: NORMAL TRICUSPID VALVE: NORMAL MITRAL VALVE: NORMAL PULMONIC VALVE: NORMAL AORTIC VALVE: AORTIC SCLEROSIS PERICARDIAL EFFUSION: NONE AORTIC ROOT: NORMAL LEFT VENTRICULAR WALL MOTION: NORMAL DOPPLER/COLOR FLOW: MILD TRICUSPID REGURGITATION. COMMENTS: NORMAL LEFT VENTRICULAR SIZE AND FUNCTION. LEFT ATRIAL ENLARGEMENT. AORTIC SCLEROSIS. NO EFFUSION. TECHNOLOGIST: Kelsey HAMILTON
[2018-07-17] MEDS ORDERED: DIGOXIN 0.125 MG TABLET PO SCH (21:00)
== END 2018-07-17 12:12 | disposition left against medical advice (07) ==
LOC: ER 01:04 → 4TH 02:32
PROVIDERS: ADMIT Internal Medicine; ATTEND Internal Medicine
DX: I21.4 Non-ST elevation (NSTEMI) myocardial infarction (principal); I10 Essential (primary) hypertension; E78.5 Hyperlipidemia, unspecified; J44.9 Chronic obstructive pulmonary disease, unspecified; Z79.02 Long term (current) use of antithrombotics/antiplatelets; I25.2 Old myocardial infarction; Z95.5 Presence of coronary angioplasty implant and graft; Z95.0 Presence of cardiac pacemaker; G89.29 Other chronic pain; G62.9 Polyneuropathy, unspecified; F17.210 Nicotine dependence, cigarettes, uncomplicated; E66.9 Obesity, unspecified; I25.10 Atherosclerotic heart disease of native coronary artery without angina pectoris; I07.1 Rheumatic tricuspid insufficiency; I44.0 Atrioventricular block, first degree; Z68.32 Body mass index [BMI] 32.0-32.9, adult
CPT/HCPCS: 36415; 71045; 80048; 80076; 82550; 82553; 83735; 83880; 84484 ×3; 85025; 85610; 85730; 93005; 93306; 96374; 99285; G0378 ×2; J1650; J2405 ×2

== ENCOUNTER 2019-11-12 14:32 | Emergency (ER) | payer OTHER, BC ==
--- OUTSIDE RECORDS SUMMARY | 2019-11-12 14:35 | XMS REPORT ---
:1940 Author Organization [facility] Address [address] [place] [address] Dr. Irby [address] [place] [id number] Care Team Providers Name Role Phone Unavailable Unavailable Unavailable Problems This patient has no known problems. Allergies, Adverse Reactions, Alerts This patient has no known allergies or adverse reactions. Medications This patient has no known medications.
[2019-11-12 15:04] LABS: Hematocrit 38.3 % (39.6-49.0); Lymphocytes % 26.8 % (15.3-44.8); RBC Red Blood Cell Count 4.19 M/uL (4.33-5.43)
[2019-11-12 15:05] LABS: Protime INR 1.03
--- NOTE | 2019-11-12 15:05 | RAD REPORT ---
EXAM DESCRIPTION: CT - Ct Stroke Brain Wo Cont - 11/12/2019 2:57 pm CLINICAL HISTORY: Weak and dizzy CVA symptomology COMPARISON: Head Brain Wo Cont dated 01/28/2018; Chest Pa And Lat (2 Views) dated 07/21/2019 TECHNIQUE: All CT scans are performed using dose optimization technique as appropriate and may inclu de automated exposure control or mA/KV adjustment according to patient size. FINDINGS: No intracranial hemorrhage, hydrocephalus or extra-axial fluid collection.Extra-axial lesi on along the right frontal convexity is again seen measuring approximately 2 cm and grossly unchanged relative to comparative study. Full evaluation is limited by noncontrast CT study however meningioma is favored.No areas of brain edema or evidence of midline shift. The paranasal sinuses and mastoids are clear. The calvarium is intact. IMPRESSION: No acute intracranial abnormality. The findings were discussed with Dr. Bowling in the ER on 11/12/2019 at 3 p.m. by telephone.
[2019-11-12 15:16] LABS: Potassium 3.9 mmol/L (3.5-5.1)
--- NOTE | 2019-11-12 16:01 | RAD REPORT ---
EXAM DESCRIPTION: CT - Head angio - 11/12/2019 3:35 pm CLINICAL HISTORY: ams, decreased responsiveness, acute CVA TECHNIQUE: During dynamic enhancement using nonionic IV contrast, axial 1 millimeter thick images of the head were obtained. Sagittal and axial reconstruction images were generated using MIP technique and reviewed. All CT scans are performed using dose optimization technique as appropriate and may include automated exposure control or mA/KV adjustment according to patient size. COMPARISON: CT head same date, CT head January 2018 FINDINGS: No aneurysm or vascular malformation identified. Major venous sinuses are patent. No stenosis, named branch occlusion, vasculitis or other significant vascular finding identifiable. L eft anterior cerebral artery supplied by the right-sided circulation. Left A1 KRISTIN branches absent. Th is is a normal anatomic variant. The patient has a 2.2 centimeter solid mass along the inner table of the right frontal bone. On the most recent CT study this mass is isodense to adjacent brain parenchy ma and occult. Mass has not changed size since the January 2018 study and is almost certainly a meningi usha. There is calcification at the dural margin. No surrounding edema. IMPRESSION: Negative CT angio head examination for acute or suspicious finding.
--- NOTE | 2019-11-12 16:14 | RAD REPORT ---
EXAM DESCRIPTION: RAD - Chest Single View - 11/12/2019 3:09 pm CLINICAL HISTORY: Stroke protocol chest film COMPARISON: June 2019, June 2018 TECHNIQUE: AP portable chest image was obtained 1502 hours . FINDINGS: No acute infiltrate is present. A 12-14 mm pulmonary nodule is present in the upper left l jame field. This is new from June 2018. Left-sided pacemaker obscure this region of the chest on the June 2019 comparison. Right hemidiaphragm elevation again noted. No acute interstitial edema. Heart and vasculature are nor mal. No measurable pleural effusion and no pneumothorax. No acute bony abnormality seen. No acute aor tic findings suspected. Pulmonary nodule findings telephoned to the referring physician 4:11 p.m.. IMPRESSION: No acute cardiopulmonary process. A 12-14 mm pulmonary nodule is present in the upper left lung field. No other lung mass confirmed. Fo llow-up CT chest could be obtained when tolerable by the patient for further assessment of this nodul e and remaining lung parenchyma.
--- NOTE | 2019-11-12 16:18 | EKG ---
Test Date: 2019-11-12 Test Time: 15:14:42 Tube Mill Operator: HARPER MEASUREMENT RESULTS: Intervals: Rate: 70 NV: 248 QRSD: 88 QT: 374 QTc: 403 Tensed: P: -12 NV: 248 QRS: 13 T: 269 INTERPRETIVE STATEMENTS: Sinus rhythm with 1st degree AV block ST & T wave abnormality, consider inferior ischemia ST & T wave abnormality, consider anterolateral ischemia Abnormal ECG Compared to ECG 07/17/2018 01:07:47 No significant changes Electronically Signed On 11-12-19 16:18:10 ACCOUNTING AUDITOR by Vikash Canas
--- NOTE | 2019-11-12 17:47 | ER ---
Nurse's Notes [facility] Name: Óscar Rivera Age: 78 yrs Sex: Male : 1940 Arrival Date: 11/12/2019 Time: 14:40 Bed 2 Private MD: Diagnosis: Altered mental status, unspecified;Dysphasia;Visual disturbances;Dysarthria and anarthria Presentation: 11/12 14:40 Presenting complaint: Patient states: pt son states the patient was sitting upright in sg his recliner but not responding to voice or touch, pt states he was aware of what was happening but was unable to speak or move his mouth or eyes per the pt, pt is now back at baseline at this time. Transition of care: patient was not received from another setting of care. No acute neurological deficit is noted. The patients blood glucose was checked before arriving to the hospital and was found to be normal. Onset of symptoms was November 12, 2019. Risk Assessment: Do you want to hurt yourself or someone else? Patient reports no desire to harm self or others. Risk Assessment: Do you want to hurt yourself or someone else?. Initial Sepsis Screen: Does the patient meet any 2 criteria? No. Patient's initial sepsis screen is negative. Does the patient have a suspected source of infection? No. Patient's initial sepsis screen is negative. Care prior to arrival: IV initiated. 20 GA, in the left antecubital area, Glucose check: 132. 14:40 Method Of Arrival: EMS: [facility] 14:40 Acuity: GLENN 2 Triage Assessment: 14:45 The onset of the patients symptoms was less than three hours ago. General: Appears in sg no apparent distress. well groomed, well developed, well nourished, Behavior is calm, cooperative, appropriate for age. Pain: Denies pain. EENT: No signs and/or symptoms were reported regarding the EENT system. Neuro: Level of Consciousness is awake, alert, obeys commands, Oriented to person, place, time, Hammer Repairer are equal bilaterally Moves all extremities. Full function Speech is normal, Facial symmetry appears normal, Reports symptoms have resolved. Cardiovascular: Capillary refill is brisk in bilateral fingers Patient's skin is warm and dry. Chest pain is denied. Respiratory: Airway is patent Respiratory effort is even, unlabored, Respiratory pattern is regular, symmetrical. GI: Abdomen is round non-distended. : No signs and/or symptoms were reported regarding the genitourinary system. Derm: Skin is pink, warm \T\ dry. Musculoskeletal: Circulation, motion, and sensation intact. Range of motion: intact in all extremities. Stroke Activation: Symptom onset < 3 hours Physician: Stroke Attending; Name: ; Notified At: ; Arrived At: Physician: Chief Stroke Resident; Name: ; Notified At: ; Arrived At: Physician: Stroke Resident; Name: ; Notified At: ; Arrived At: Physician: ED Attending; Name: ; Notified At: ; Arrived At: Physician: ED Resident; Name: ; Notified At: ; Arrived At: Historical: - Allergies: 14:45 No Known Allergies; sg - PMHx: 14:45 CHF; Chronic pain; GERD; Hypertension; irregular heart beat; neuropathy; sg - PSHx: 15:09 Pacemaker; Heart stents x3; R knee replacement; Cholecystectomy; sg - Immunization history:: Adult Immunizations up to date. - Social history:: Smoking status: Patient/guardian denies using tobacco. - Ebola Screening: : Patient negative for fever greater than or equal to 101.5 degrees Fahrenheit, and additional compatible Ebola Virus Disease symptoms Patient denies exposure to infectious person Patient denies travel to an Ebola-affected area in the 21 days before illness onset No symptoms or risks identified at this time. Screenin:40 Abuse screen: Denies threats or abuse. Denies injuries from another. Nutritional sg screening: No deficits noted. Tuberculosis screening: No symptoms or risk factors identified. Never had TB. VAN Screening: Arm Drift: Patient shows no arm weakness. Patient is VAN negative. The patient has not been NPO before screening. The patient is alert, able to follow commands. The patient does not exhibit slurred or garbled speech The patient is not exhibiting difficulty speaking. The patient does not exhibit difficulty understanding words. The patient is able to swallow own secretions with no drooling or need for suction. Patient tolerated one teaspoon of water. No drooling, immediate coughing, gurgling, or clearing of the throat was noted. The patient tolerated 90mL of water. No drooling, immediate coughing, gurgling, or clearing of the throat was noted. The patient passed the bedside swallow screening. Oral medications may be given as ordered. Contact Physician for further diet orders. Assessment: 16:20 Reassessment: Patient appears in no apparent distress at this time. sg 17:20 Reassessment: Patient appears in no apparent distress at this time. at sg bedside, updating pt and pt family on POC and results, pt to be dispo to home. Vital Signs: 14:40 BP 133 / 108; Pulse 77; Resp 18; Temp 97.7; Pulse Ox 100% on R/A; sg 15:00 BP 151 / 92; Pulse 72; Resp 18; Pulse Ox 98% ; sv 16:00 BP 156 / 91; Pulse 73; Resp 15; Pulse Ox 96% ; sv 17:02 BP 172 / 92; Pulse 74; Resp 15; Pulse Ox 96% ; sv NIH Stroke Scale Scores: 14:40 NIHSS Score: 0 sg 15:59 NIHSS Score: 0 kdr ED Course: 14:40 Patient arrived in ED. sg 14:44 Triage completed. sg 14:45 Tino Bowling MD is Attending Physician. kdr 14:45 Arm band placed on. sg 14:50 Initial lab(s) drawn, by film laboratory technician, sent to lab. Maintain EMS IV. Dressing intact. Good sg blood return noted. Site clean \T\ dry. Gauge \T\ site: 20 G LAC. 14:52 Ravi Velez, RN is Primary Nurse. sg 15:11 CT Stroke Brain w/o Contrast In Process Unspecified. EDMS 15:13 Stroke CXR 1 View In Process Unspecified. EDMS 15:37 Head angio In Process Unspecified. EDMS 17:52 No provider procedures requiring assistance completed. Patient did not have IV access sg during this emergency room visit. intact, Pressure dressing applied. Administered Medications: No medications were administered Outcome: 17:46 Discharge ordered by . kdr 17:50 Discharged to home ambulatory, with family. sg 17:50 Condition: good 17:50 Discharge instructions given to patient, family, Instructed on discharge instructions, follow up and referral plans. medication usage, safety practices, Demonstrated understanding of instructions, follow-up care. 17:56 Patient left the ED. hb NIH Stroke Scale - NIH Stroke Score Date: 11/12/2019 Time: 14:40 Total Score = 0 1a. Level of Consciousness (LOC) - 0(Alert) 1b. Level of Consciousness (LOC) (Year \T\ Age) - 0(Both) 1c. LOC Commands (Open \T\ Closes Eyes/Metal Pourer) - 0(Both) 2. Best Gaze (Lateral Gaze Paresis) - 0(Normal) 3. Visual Field Loss - 0(No visual loss) 4. Facial Palsy - 0(Normal) 5a. Left Arm: Motor (10-second hold) - 0(No drift) 5b. Right Arm: Motor (10-second hold) - 0(No drift) 6a. Left Leg: Motor (5-second hold - always test supine) - 0(No drift) 6b. Right Leg: Motor (5-second hold - always test supine) - 0(No drift) 7. Limb Ataxia (finger/nose \T\ heel/jolley - test with eyes open) - 0(Absent) 8. Sensory Loss (pinprick arms/legs/face) - 0(Normal) 9. Best Language: Aphasia (description/naming/reading) - 0(No aphasia) 10. Dysarthria (speech clarity - read or repeat words) - 0(Normal) 11. Extinction and Inattention (visual/tactile/auditory/spatial/personal) - 0(No abnormality) Initials: NIH Stroke Scale - NIH Stroke Score Date: 11/12/2019 Time: 15:59 Total Score = 0 1a. Level of Consciousness (LOC) - 0(Alert) 1b. Level of Consciousness (LOC) (Year \T\ Age) - 0(Both) 1c. LOC Commands (Open \T\ Closes Eyes/Metal Pourer) - 0(Both) 2. Best Gaze (Lateral Gaze Paresis) - 0(Normal) 3. Visual Field Loss - 0(No visual loss) 4. Facial Palsy - 0(Normal) 5a. Left Arm: Motor (10-second hold) - 0(No drift) 5b. Right Arm: Motor (10-second hold) - 0(No drift) 6a. Left Leg: Motor (5-second hold - always test supine) - 0(No drift) 6b. Right Leg: Motor (5-second hold - always test supine) - 0(No drift) 7. Limb Ataxia (finger/nose \T\ heel/jolley - test with eyes open) - 0(Absent) 8. Sensory Loss (pinprick arms/legs/face) - 0(Normal) 9. Best Language: Aphasia (description/naming/reading) - 0(No aphasia) 10. Dysarthria (speech clarity - read or repeat words) - 0(Normal) 11. Extinction and Inattention (visual/tactile/auditory/spatial/personal) - 0(No abnormality) Initials: kdr Signatures: Dispatcher [employer] Ibeth Rodriguez RN RN sv Gay, Steven, RN RN sg Rittger, Kevin, MD MD [facility] Alma Pettit RN RN hb
--- NOTE | 2019-11-12 17:47 | EDPHYS ---
Physician Documentation [facility] Name: Óscar Rivera Age: 78 yrs Sex: Male : 1940 Arrival Date: 11/12/2019 Time: 14:40 Bed 2 Private MD: ED Physician Tino Bowling HPI: 11/12 16:48 This 78 yrs old Male presents to ER via EMS with complaints of S/S of kdr Possible Stroke. 16:48 The patient's problem is reported as The patient states that he was watching the kdr "impeachment hearings" and suddenly was not able to open his eyes or speak. He reports that it took him a few minutes to be able to make sounds and get the attention of his son down stairs. When his arrived on scene a few minutes later, he was still not able to open his eyes though his was able to start to form some words. By the time he arrived in the ED he had returned to baseline. Onset: The symptoms/episode began/occurred suddenly, just prior to arrival. Duration: This was a single incident. Context: the episode(s) was witnessed, by family, symptoms became apparent Just SCHEDULE MANAGER, occurred at home, occurred while the patient was at rest, sitting. Associated signs and symptoms: The patient has no apparent associated signs or symptoms. Severity of symptoms: At their worst the symptoms were incapacitating in the emergency department the symptoms have resolved. Patient's baseline: Neuro: alert and fully oriented, Motor: no deficits, Ambulation: walks without assistance, Speech: normal. The patient has not experienced similar symptoms in the past. The patient has not recently seen a physician. Historical: - Allergies: 14:45 No Known Allergies; sg - PMHx: 14:45 CHF; Chronic pain; GERD; Hypertension; irregular heart beat; neuropathy; sg - PSHx: 15:09 Pacemaker; Heart stents x3; R knee replacement; Cholecystectomy; sg - Immunization history:: Adult Immunizations up to date. - Social history:: Smoking status: Patient/guardian denies using tobacco. - Ebola Screening: : Patient negative for fever greater than or equal to 101.5 degrees Fahrenheit, and additional compatible Ebola Virus Disease symptoms Patient denies exposure to infectious person Patient denies travel to an Ebola-affected area in the 21 days before illness onset No symptoms or risks identified at this time. Vital Signs: 14:40 BP 133 / 108; Pulse 77; Resp 18; Temp 97.7; Pulse Ox 100% on R/A; sg 15:00 BP 151 / 92; Pulse 72; Resp 18; Pulse Ox 98% ; sv 16:00 BP 156 / 91; Pulse 73; Resp 15; Pulse Ox 96% ; sv 17:02 BP 172 / 92; Pulse 74; Resp 15; Pulse Ox 96% ; sv NIH Stroke Scale Scores: 14:40 NIHSS Score: 0 sg 15:59 NIHSS Score: 0 kdr MDM: 17:46 Patient medically screened. kdr 11/12 14:46 Order name: Basic Metabolic Panel; Complete Time: 17:14 kdr 11/12 14:46 Order name: CBC with Diff kdr 11/12 14:46 Order name: Protime (+inr); Complete Time: 17:14 kdr 11/12 14:46 Order name: Ptt, Activated; Complete Time: 17:14 kdr 11/12 14:46 Order name: CT Stroke Brain w/o Contrast; Complete Time: 17:14 kdr 11/12 15:03 Order name: Glucose, Ancillary Testing EDMS 11/12 14:46 Order name: Stroke CXR 1 View; Complete Time: 17:14 kdr 11/12 14:46 Order name: EKG; Complete Time: 14:47 kdr 11/12 14:46 Order name: Accucheck; Complete Time: 15:07 kdr 11/12 14:46 Order name: Cardiac monitoring; Complete Time: 15:07 kdr 11/12 14:46 Order name: EKG - Nurse/Tech; Complete Time: 16:18 kdr 11/12 14:46 Order name: IV Saline Lock; Complete Time: 15:07 kdr 11/12 15:21 Order name: Head angio; Complete Time: 17:14 EDMS 11/12 14:46 Order name: Labs collected and sent; Complete Time: 15:07 kdr 11/12 14:46 Order name: NPO; Complete Time: 15:07 kdr 11/12 14:46 Order name: O2 Per Protocol; Complete Time: 15:07 kdr 11/12 14:46 Order name: O2 Sat Monitoring; Complete Time: 15:07 kdr 11/12 14:46 Order name: Stroke Swallow Screen; Complete Time: 16:18 kdr Administered Medications: No medications were administered Disposition: 11/12/19 17:46 Discharged to Home. Impression: Altered mental status, unspecified, Dysphasia, Visual disturbances, Dysarthria and anarthria. - Condition is Stable. - Discharge Instructions: Visual Disturbances, Mild Neurocognitive Disorder. - Medication Reconciliation Form, Thank You Letter form. - Follow up: Private Physician; When: 2 - 3 days; Reason: If symptoms return, Further diagnostic work-up, Recheck today's complaints, Continuance of care, Re-evaluation by your physician. - Problem is new. - Symptoms are resolved. NIH Stroke Scale - NIH Stroke Score Date: 11/12/2019 Time: 14:40 Total Score = 0 1a. Level of Consciousness (LOC) - 0(Alert) 1b. Level of Consciousness (LOC) (Year \\T\\ Age) - 0(Both) 1c. LOC Commands (Open \\T\\ Closes Eyes/Scroll Shear Operator) - 0(Both) 2. Best Gaze (Lateral Gaze Paresis) - 0(Normal) 3. Visual Field Loss - 0(No visual loss) 4. Facial Palsy - 0(Normal) 5a. Left Arm: Motor (10-second hold) - 0(No drift) 5b. Right Arm: Motor (10-second hold) - 0(No drift) 6a. Left Leg: Motor (5-second hold - always test supine) - 0(No drift) 6b. Right Leg: Motor (5-second hold - always test supine) - 0(No drift) 7. Limb Ataxia (finger/nose \\T\\ heel/jolley - test with eyes open) - 0(Absent) 8. Sensory Loss (pinprick arms/legs/face) - 0(Normal) 9. Best Language: Aphasia (description/naming/reading) - 0(No aphasia) 10. Dysarthria (speech clarity - read or repeat words) - 0(Normal) 11. Extinction and Inattention (visual/tactile/auditory/spatial/personal) - 0(No abnormality) Initials: NIH Stroke Scale - NIH Stroke Score Date: 11/12/2019 Time: 15:59 Total Score = 0 1a. Level of Consciousness (LOC) - 0(Alert) 1b. Level of Consciousness (LOC) (Year \\T\\ Age) - 0(Both) 1c. LOC Commands (Open \\T\\ Closes Eyes/Scroll Shear Operator) - 0(Both) 2. Best Gaze (Lateral Gaze Paresis) - 0(Normal) 3. Visual Field Loss - 0(No visual loss) 4. Facial Palsy - 0(Normal) 5a. Left Arm: Motor (10-second hold) - 0(No drift) 5b. Right Arm: Motor (10-second hold) - 0(No drift) 6a. Left Leg: Motor (5-second hold - always test supine) - 0(No drift) 6b. Right Leg: Motor (5-second hold - always test supine) - 0(No drift) 7. Limb Ataxia (finger/nose \\T\\ heel/jolley - test with eyes open) - 0(Absent) 8. Sensory Loss (pinprick arms/legs/face) - 0(Normal) 9. Best Language: Aphasia (description/naming/reading) - 0(No aphasia) 10. Dysarthria (speech clarity - read or repeat words) - 0(Normal) 11. Extinction and Inattention (visual/tactile/auditory/spatial/personal) - 0(No abnormality) Initials: kdr Signatures: Dispatcher [employer] [facility] Ravi Velez RN RN Tino Bowling MD MD kdr Alma Petitt RN RN hb Corrections: (The following items were deleted from the chart) 17:48 15:03 MR STROKE PROTOCOL+MRI.RAD.BRZ ordered. [facility] 17:56 17:46 11/12/2019 17:46 Discharged to Home. Impression: Altered mental status, hb unspecified; Dysphasia; Visual disturbances; Dysarthria and anarthria. Condition is Stable. Forms are Medication Reconciliation Form, Thank You Letter, Antibiotic Education, Prescription Opioid Use. Follow up: Private Physician; When: 2 - 3 days; Reason: If symptoms return, Further diagnostic work-up, Recheck today's complaints, Continuance of care, Re-evaluation by your physician. Problem is new. Symptoms are resolved. kdr
[2019-11-12 21:05] VITALS: TEMP 97.7
[2019-11-12 21:09] VITALS: O2SAT 96
[2019-11-12 21:10] VITALS: BP 172/92
== END 2019-11-12 17:56 | disposition home or self-care (01) ==
LOC: ER 14:32
DX: R41.82 Altered mental status, unspecified (principal); R13.10 Dysphagia, unspecified; H53.9 Unspecified visual disturbance; Z95.0 Presence of cardiac pacemaker; Z95.5 Presence of coronary angioplasty implant and graft
CPT/HCPCS: 93005; 85025; 80048; 36415; 85610; 82947; 85730; 70496; 70450; 71045; 99284; Q9967

== ENCOUNTER 2019-11-27 14:45 | Observation (INO) | payer OTHER, BC ==
--- OUTSIDE RECORDS SUMMARY | 2019-11-27 14:48 | XMS REPORT ---
:1940 [facility] Address [address] [place] [address] Dr. Irby [address] [place] [id number] Care Team Providers Name Role Phone Unavailable Unavailable Unavailable Problems This patient has no known problems. Allergies, Adverse Reactions, Alerts This patient has no known allergies or adverse reactions. Medications This patient has no known medications.
[2019-11-27 15:35] LABS: Absolute Lymphocytes (CBC) 1.2 K/uL (0.7-4.9); Basophils % 0.6 % (0-1.3); Hematocrit 43.1 % (39.6-49.0); MPV 8.9 fL (7.6-11.3); RBC Red Blood Cell Count 4.65 M/uL (4.33-5.43)
[2019-11-27 15:42] LABS: Protime INR 1.04
--- NOTE | 2019-11-27 15:45 | RAD REPORT ---
EXAM DESCRIPTION: CT - Head C Spine Mpr Wo Con - 11/27/2019 3:31 pm CLINICAL HISTORY: Syncope. Head and neck injury status post fall. Head and neck pain COMPARISON: November 12, [address] TECHNIQUE: Computed axial tomography of the head and cervical spine was obtained. Sagittal and coronal reconstruction was performed. All CT scans are performed using dose optimization technique as appropriate and may include automated exposure control or mA/KV adjustment according to patient size. FINDINGS: A 2.3 centimeter isodense mass along the right frontal convexity containing calcification is unchanged likely a meningioma. Surrounding edema is not seen. An intracranial bleed is not seen. The ventricles are normal in caliber. An extra-axial fluid collect ion is not noted.Fluid within the visualized sinuses and mastoids is not seen A cervical fracture is not visualized. No dislocation is noted. Small to moderate right paracentral d isc osteophyte complex C6-7. Spondylosis involving the cervical spine resulting in moderate foraminal stenosis IMPRESSION: No acute intracranial abnormality is seen. A cervical fracture is not visualized. If the patient continues to have symptoms to suggest intracra nial /spinal cord pathology then MRI would be recommended
--- NOTE | 2019-11-27 15:52 | RAD REPORT ---
EXAM DESCRIPTION: Maryellen Single View11/27/2019 3:43 pm CLINICAL HISTORY: Chest pain COMPARISON: November 10, 2019 FINDINGS: An approximately 15 millimeter left upper lobe nodule is unchanged from the prior exam. Ho wever it has developed since 2017 and may represent neoplasm. The right lung is clear of acute infiltrate. Heart is normal size. Pacemaker leads in place
[2019-11-27 16:00] LABS: ALT/SGPT 23 U/L (12-78); AST/SGOT 13 U/L (15-37); Albumin 3.3 g/dL (3.4-5.0); Alkaline Phosphatase 87 U/L (45-117); BUN Blood Urea Nitrogen 16 mg/dL (7-18); Bicarbonate 30 mmol/L (21-32); Bilirubin Direct 0.2 mg/dL (0-0.2); Glucose Level 130 mg/dL (74-106); Magnesium 2.2 mg/dL (1.8-2.4); NT PRO-BNP 381 pg/mL (<450); Potassium 4.4 mmol/L (3.5-5.1); Protein, Total 6.6 g/dL (6.4-8.2); Sodium Level 143 mmol/L (136-145); Troponin (Emerg Dept Use Only) < 0.02 ng/mL (0.0-0.045)
--- NOTE | 2019-11-27 16:39 | RAD REPORT ---
EXAM DESCRIPTION: USCarotid Artery Bilateral11/27/2019 4:23 pm CLINICAL HISTORY: syncope COMPARISON: None FINDINGS: The velocity of the right internal carotid artery equals 68 cm/sec. The right ICA/CCA rati o 1.2 The velocity of the left internal carotid artery equals 63 cm/sec. The left ICA/CCA ratio .7 Mild plaque is present within the carotid arteries. The vertebral arteries demonstrate antegrade flow IMPRESSION: Mild plaque within the carotid arteries without evidence of a hemodynamically significan t stenosis NASCET criteria used. Mild 0-49% stenosis Moderate 50-69% stenosis Severe 70-99% stenosis
[2019-11-27] MEDS ORDERED: MORPHINE 4 MG/ML SYR ONE (17:00)
[2019-11-27] MEDS ORDERED: PROMETHAZINE INJ 25 MG/ML AMP ONE (17:00)
--- NOTE | 2019-11-27 17:17 | RAD REPORT ---
EXAM DESCRIPTION: CT - Thorax W/ Con - 11/27/2019 4:51 pm CLINICAL HISTORY: Pulmonary nodule COMPARISON: November 26, 2019 chest x-ray TECHNIQUE: Computed axial tomography of the chest was obtained. 100 cc Isovue 300 was administered i ntravenously. All CT scans are performed using dose optimization technique as appropriate and may include automated exposure control or mA/KV adjustment according to patient size. FINDINGS: 15 millimeter posterior left upper lobe nodule abuts the fissure. Mild scarring or atelectasis right lower lobe. A 3 millimeter right lower lobe nodule 9 millimeter soft tissue structure is present within the distal right aspect of the trachea No mediastinal or hilar lymphadenopathy is seen. A pleural effusion is not present. A pericardial effusion is not seen. IMPRESSION: A 15 millimeter left upper lobe nodule may represent neoplasm 3 millimeter nonspecific right lower lobe nodule 9 millimeter soft tissue structure is present within the distal right aspect of the trachea. Endoscop y is recommended
--- NOTE | 2019-11-27 18:45 | ER ---
Nurse's Notes [facility] Name: Óscar Rivera Age: 78 yrs Sex: Male : 1940 Arrival Date: 11/27/2019 Time: 14:47 Bed 23 Private MD: Diagnosis: Muscle weakness (generalized);Dyspnea;Tracheal Mass;Multiple pulmonary nodules Presentation: 11/27 14:48 Presenting complaint: EMS states: Pt was outside today with the journeyman electrician working on tr5 the house and came inside telling family he feels like he is "going to pass out." Pt went into the bathroom where the family witnessed the pt fall from standing. Pt's family denies pt hitting his head or any injuries. Pt was seen here last month for a syncope incident. Pt does have an extensive cardiac history including 7 cardiac stents. Pt's BG was 129 and he has a 20 G IV to his R hand. Transition of care: patient was not received from another setting of care. Onset of symptoms was November 27, 2019. Risk Assessment: Do you want to hurt yourself or someone else? Patient reports no desire to harm self or others. Initial Sepsis Screen: Does the patient meet any 2 criteria? No. Patient's initial sepsis screen is negative. Does the patient have a suspected source of infection? No. Patient's initial sepsis screen is negative. Care prior to arrival: IV initiated. 20 GA, in the right hand, Glucose check: 129. 14:48 Method Of Arrival: EMS: [facility] tr5 14:48 Acuity: GLENN 3 tr5 Historical: - Allergies: 15:03 No Known Allergies; tr5 - Home Meds: 15:03 irbesartan Oral [Active]; digoxin 125 mcg Oral tab [Active]; Ranexa 1,000 mg Oral Tb12 tr5 1 tab 2 times per day [Active]; sotalol 80 mg Oral tab 1 tab 2 times per day [Active]; isosorbide mononitrate 60 mg Oral Tb24 [Active]; Paxil 40 mg Oral tab [Active]; BRILINTA 90 mg oral tab [Active]; aspirin 81 mg Oral chew [Active]; pantoprazole 40 mg Oral TbEC 1 tab once daily [Active]; colestipol 1 gram oral tab [Active]; atorvastatin 40 mg oral tab [Active]; - PMHx: 15:03 CHF; Chronic pain; GERD; Hypertension; irregular heart beat; neuropathy; tr5 - PSHx: 15:03 Heart stents; tr5 - Immunization history:: Adult Immunizations up to date. - Social history:: Smoking status: Patient/guardian denies using. - Ebola Screening: : No symptoms or risks identified at this time. Screenin:15 Abuse screen: Denies threats or abuse. Nutritional screening: No deficits noted. tr5 Tuberculosis screening: No symptoms or risk factors identified. Fall Risk None identified. Assessment: 15:15 General: Appears uncomfortable, Behavior is calm, cooperative, quiet. Pain: Denies tr5 pain. Neuro: Level of Consciousness is awake, alert, obeys commands, Oriented to person, place, time, Labor Union Business Representative are equal bilaterally Reports dizziness, a syncopal episode weakness. Respiratory: Airway is patent Respiratory effort is even, unlabored, Respiratory pattern is regular, symmetrical. GI: No signs and/or symptoms were reported involving the gastrointestinal system. : No signs and/or symptoms were reported regarding the genitourinary system. EENT: No signs and/or symptoms were reported regarding the EENT system. Derm: No signs and/or symptoms reported regarding the dermatologic system. Musculoskeletal: No signs and/or symptoms reported regarding the musculoskeletal system. 16:00 Reassessment: Patient appears in no apparent distress at this time. Patient and/or tr5 family updated on plan of care and expected duration. Pain level reassessed. Patient is alert, oriented x 3, equal unlabored respirations, skin warm/dry/pink. Cardiovascular: Rhythm is regular. 17:00 Reassessment: Patient appears in no apparent distress at this time. Patient and/or tr5 family updated on plan of care and expected duration. Pain level reassessed. Patient is alert, oriented x 3, equal unlabored respirations, skin warm/dry/pink. Pt spouse at bedside. 18:00 Reassessment: Patient appears in no apparent distress at this time. No changes from tr5 previously documented assessment. Patient and/or family updated on plan of care and expected duration. Pain level reassessed. 19:00 Reassessment: Patient appears in no apparent distress at this time. Patient and/or tr5 family updated on plan of care and expected duration. Pain level reassessed. Patient is alert, oriented x 3, equal unlabored respirations, skin warm/dry/pink. Vital Signs: 15:02 BP 112 / 74 LA (auto/reg); Pulse 73; Resp 18; Temp 95.9(TE); Pulse Ox 94% on R/A; Pain jp3 0/10; 15:06 Pulse Ox 98% on 3 lpm NC; jp3 15:30 jp3 16:43 BP 123 / 82; Pulse 78; Resp 17; Temp 97.8(O); Pulse Ox 99% on 3 lpm NC; tr5 17:47 BP 138 / 71; Pulse 72; Resp 16; Pulse Ox 99% on 3 lpm NC; tr5 19:00 BP 90 / 68; Pulse 74; Resp 16; Pulse Ox 100% on R/A; tr5 21:03 BP 100 / 68; Pulse 68; Resp 17; Pulse Ox 99% on 2 lpm NC; tr5 15:02 PATIENT reported feeling nausus jp3 15:30 blood suguar was 131 at bedside jp3 ED Course: 14:47 Patient arrived in ED. tr5 14:48 Maintain EMS IV. Dressing intact. Site clean \\T\\ dry. Gauge \\T\\ site: 20G R hand. tr 5 14:52 Triage completed. tr5 15:03 Oxygen administration via nasal cannula \\T\\ 3L/min. jp3 15:03 Arm band placed on Patient placed. tr5 15:04 EKG done, by ED staff, reviewed by Tino Bowling MD. jp3 15:04 Safety checks: Family/friend present: yes. Placed in gown. Bed in low position. Call jp3 light in reach. Side rails up X 1. Side rails up X2. Warm blanket given. Verbal reassurance given. cardiac monitor on. Pulse ox on. NIBP on. 15:07 Response to oxygen therapy: symptoms improved. jp3 15:09 Ambar Justice FNP-C is [facility]. snw 15:09 Tino Bowling MD is Attending Physician. snw 15:18 Rodolfo Jung, [place] is Primary Nurse. tr5 15:24 Inserted saline lock: 22 gauge in left antecubital area, using aseptic technique. Blood jp3 collected. 15:24 Initial lab(s) drawn, by me, sent to lab. jp3 15:28 Radiology exam delayed due to pt having cat scan and xray first. hr 15:29 Oxygen administration via nasal cannula \\T\\ 2L/min. jp3 15:32 CT Head C Spine In Process Unspecified. EDMS 15:46 XRAY Chest (1 view) In Process Unspecified. EDMS 16:04 Carotid Artery Bilateral US In Process Unspecified. EDMS 16:[address] tr5 16:52 CT Chest W/ Con In Process Unspecified. EDMS 17:15 Patient patient given bear hugger. tr5 18:42 Edson Bush MD is Hospitalizing Provider. snw 20:35 No provider procedures requiring assistance completed. Patient admitted, IV remains in tr5 place. Administered Medications: 17:05 Drug: morphine 4 mg {Note: RASS:0.} Route: IVP; Site: left antecubital; tr5 18:00 Follow up: Response: Pain is decreased; RASS: Alert and Calm (0) tr5 17:05 Drug: Phenergan 6.25 mg Route: IVP; Site: left antecubital; tr5 18:00 Follow up: Response: Marked relief of symptoms tr5 20:07 Drug: Lovenox 40 mg Route: Sub-Q; Site: abdomen; tr5 21:00 Follow up: Response: No adverse reaction tr5 21:00 Drug: NS 0.9% 500 ml Route: IV; Rate: bolus; Site: left antecubital; tr5 11/28 01:52 Follow up: Response: No adverse reaction; IV Status: Completed infusion; IV Intake: tr5 500ml Point of Care Testing: Ranges: Intake: 01:52 IV: 500ml; Total: 500ml. tr5 Outcome: 11/27 18:44 Decision to Hospitalize by Provider. snw 20:35 Admitted to Med/surg accompanied by tech, via stretcher, with chart, Report called to tr5 Erinn HANNAH 20:35 Condition: stable 20:35 Instructed on the need for admit. 21:07 Patient left the ED. tr5 Signatures: Dispatcher [employer] EDNY Ambar Justice, MINEC .NET ARCHITECT-Yasmine Cloud Jacob jp3 Rodolfo Jung, RN RN tr5 Corrections: (The following items were deleted from the chart) 15:47 14:48 Maintain EMS IV. Dressing intact. Good blood return noted. Site clean \\T\\ dry. tr5 Gauge \\T\\ site: 20G R hand. tr5 16:56 16:43 BP 123 / 82; Pulse 78bpm; Resp 17bpm; Pulse Ox 99% 3 lpm Nasal Cannula; tr5 tr5
--- NOTE | 2019-11-27 18:45 | EDPHYS ---
Physician Documentation [facility] Name: Óscar Rivera Age: 78 yrs Sex: Male : 1940 Arrival Date: 11/27/2019 Time: 14:47 Bed 23 Private MD: ED Physician Tino Bowling HPI: 11/27 19:29 This 78 yrs old Male presents to ER via EMS with complaints of Syncope. snw 19:29 The patient has experienced syncope, collapsed. Onset: The symptoms/episode snw began/occurred suddenly, just prior to arrival. Duration: This was a single episode, that lasted 10 minute(s). Context: the episode(s) was witnessed, by family, , occurred at home, occurred while the patient was standing, in elevator. Context: Just prior to the episode the patient experienced shortness of breath, sudden severe fatigue. Associated injury: The patient did not suffer any apparent associated injury. Current symptoms: mildly hypothermic, Jose Hugger placed. Continued weak feeling, feels short of breath. The patient has experienced a previous episode, approximately 3 weeks ago. It is unknown whether or not the patient has recently seen a physician. Historical: - Allergies: 15:03 No Known Allergies; tr5 - Home Meds: 15:03 irbesartan Oral [Active]; digoxin 125 mcg Oral tab [Active]; Ranexa 1,000 mg Oral Tb12 tr5 1 tab 2 times per day [Active]; sotalol 80 mg Oral tab 1 tab 2 times per day [Active]; isosorbide mononitrate 60 mg Oral Tb24 [Active]; Paxil 40 mg Oral tab [Active]; BRILINTA 90 mg oral tab [Active]; aspirin 81 mg Oral chew [Active]; pantoprazole 40 mg Oral TbEC 1 tab once daily [Active]; colestipol 1 gram oral tab [Active]; atorvastatin 40 mg oral tab [Active]; - PMHx: 15:03 CHF; Chronic pain; GERD; Hypertension; irregular heart beat; neuropathy; tr5 - PSHx: 15:03 Heart stents; tr5 - Immunization history:: Adult Immunizations up to date. - Social history:: Smoking status: Patient/guardian denies using. - Ebola Screening: : No symptoms or risks identified at this time. ROS: 19:25 Eyes: Negative for injury, pain, redness, and discharge, ENT: Negative for injury, snw pain, and discharge, Neck: Negative for injury, pain, and swelling, Cardiovascular: Negative for chest pain, palpitations, and edema. 19:25 Back: Negative for injury and pain, : Negative for injury, bleeding, discharge, and swelling, MS/Extremity: Negative for injury and deformity. 19:25 Psych: Negative for depression, anxiety, suicide ideation, homicidal ideation, and hallucinations. 19:25 Constitutional: Positive for fatigue, malaise, episodes of severe fatigue, felt short of breath, syncopal today, Spouse states he was sweaty, pale, nauseated. Symptoms improved prior to EMS arrival. Pt c/o weakness, shortness of breath, dizziness. 19:25 Respiratory: Positive for shortness of breath, at rest. 19:25 Abdomen/GI: Positive for nausea. 19:25 Skin: Positive for diaphoresis. 19:25 Neuro: Positive for dizziness, syncope. Exam: 19:25 Constitutional: This is a well developed, well nourished patient who is awake, supine, snw and in no acute distress. Head/Face: Normocephalic, atraumatic. Eyes: Pupils equal round and reactive to light, extra-ocular motions intact. Lids and lashes normal. Conjunctiva and sclera are non-icteric and not injected. Cornea within normal limits. Periorbital areas with no swelling, redness, or edema. ENT: Nares patent. No nasal discharge, no septal abnormalities noted. Tympanic membranes are normal and external auditory canals are clear. Oropharynx with no redness, swelling, or masses, exudates, or evidence of obstruction, uvula midline. Mucous membranes moist. Neck: Trachea midline, no thyromegaly or masses palpated, and no cervical lymphadenopathy. Supple, full range of motion without nuchal rigidity, or vertebral point tenderness. No Meningismus. Chest/axilla: Normal chest wall appearance and motion. Nontender with no deformity. No lesions are appreciated. Cardiovascular: Regular rate and rhythm with a normal S1 and S2. No gallops, murmurs, or rubs. Normal PMI, no JVD. No pulse deficits. Respiratory: Lungs have equal breath sounds bilaterally, clear to auscultation and percussion. No rales, rhonchi or wheezes noted. No increased work of breathing, no retractions or nasal flaring. Pt states he is short of breath Abdomen/GI: Soft, non-tender, with normal bowel sounds. No distension or tympany. No guarding or rebound. No evidence of tenderness throughout. Back: No spinal tenderness. No costovertebral tenderness. Full range of motion. Skin: Warm, dry with normal turgor. Normal color with no rashes, no lesions, and no evidence of cellulitis. MS/ Extremity: Pulses equal, no cyanosis. Neurovascular intact. Full, normal range of motion. Neuro: Awake and alert, GCS 15, oriented to person, place, time, and situation. Cranial nerves II-XII grossly intact. Motor strength 5/5 in all extremities. Sensory grossly intact. Cerebellar exam normal. Normal gait. Psych: Awake, alert, with orientation to person, place and time. Behavior, mood, and affect are within normal limits. Vital Signs: 15:02 BP 112 / 74 LA (auto/reg); Pulse 73; Resp 18; Temp 95.9(TE); Pulse Ox 94% on R/A; Pain jp3 0/10; 15:06 Pulse Ox 98% on 3 lpm NC; jp3 15:30 jp3 16:43 BP 123 / 82; Pulse 78; Resp 17; Temp 97.8(O); Pulse Ox 99% on 3 lpm NC; tr5 17:47 BP 138 / 71; Pulse 72; Resp 16; Pulse Ox 99% on 3 lpm NC; tr5 19:00 BP 90 / 68; Pulse 74; Resp 16; Pulse Ox 100% on R/A; tr5 21:03 BP 100 / 68; Pulse 68; Resp 17; Pulse Ox 99% on 2 lpm NC; tr5 15:02 PATIENT reported feeling nausus jp3 15:30 blood suguar was 131 at bedside jp3 MDM: 15:09 Patient medically screened. snw 15:36 Data reviewed: vital signs, nurses notes, EKG. Awaiting: pt in CT. snw 18:40 Physician consultation: Edson Bush MD was called at 18:41, was contacted at 18:41, snw regarding admission, to the telemetry unit. would like consultation with Dr. Dr. Mckenzie, would like medications started, Lovenox, 40mg sc daily. 11/27 15:09 Order name: Basic Metabolic Panel; Complete Time: 16:02 snw 11/27 15:09 Order name: CBC with Diff; Complete Time: 16:02 snw 11/27 15:09 Order name: LFT's; Complete Time: 16:02 snw 11/27 15:09 Order name: Magnesium; Complete Time: 16:02 snw 11/27 15:09 Order name: NT PRO-BNP; Complete Time: 16:02 snw 11/27 15:09 Order name: PT-INR; Complete Time: 16:02 snw 11/27 15:09 Order name: Troponin (emerg Dept Use Only); Complete Time: 16:02 snw 11/27 15:09 Order name: XRAY Chest (1 view); Complete Time: 16:02 snw 11/27 15:14 Order name: CT Head C Spine; Complete Time: 16:02 snw 11/27 15:14 Order name: Carotid Artery Bilateral US; Complete Time: 16:41 snw 11/27 15:15 Order name: Digoxin; Complete Time: 16:15 snw 11/27 15:16 Order name: UDS w 11/27 15:40 Order name: Glucose, Ancillary Testing; Complete Time: 16:02 EDMS 11/27 16:09 Order name: CT Chest W/ Con; Complete Time: 17:23 snw 11/27 15:09 Order name: EKG; Complete Time: 15:12 snw 11/27 15:09 Order name: Cardiac monitoring; Complete Time: 15:13 snw 11/27 15:09 Order name: EKG - Nurse/Tech; Complete Time: 15:13 snw 11/27 15:09 Order name: IV Saline Lock; Complete Time: 15:19 snw 11/27 15:09 Order name: Labs collected and sent; Complete Time: 15:30 snw 11/27 15:09 Order name: O2 Per Protocol; Complete Time: 15:12 snw 11/27 15:09 Order name: O2 Sat Monitoring; Complete Time: 15:12 snw 11/27 16:42 Order name: Jose Live; Complete Time: 17:14 snw Administered Medications: 17:05 Drug: morphine 4 mg {Note: RASS:0.} Route: IVP; Site: left antecubital; tr5 18:00 Follow up: Response: Pain is decreased; RASS: Alert and Calm (0) tr5 17:05 Drug: Phenergan 6.25 mg Route: IVP; Site: left antecubital; tr5 18:00 Follow up: Response: Marked relief of symptoms tr5 20:07 Drug: Lovenox 40 mg Route: Sub-Q; Site: abdomen; tr5 21:00 Follow up: Response: No adverse reaction tr5 21: Drug: NS 0.9% 500 ml Route: IV; Rate: bolus; Site: left antecubital; tr5 11/28 01:52 Follow up: Response: No adverse reaction; IV Status: Completed infusion; IV Intake: tr5 500ml Point of Care Testing: Ranges: Critical Glucose Levels:Adult <50 mg/dl or >400 mg/dl <40 mg/dl or >180 mg/dl Disposition: 07:32 Co-signature as Attending Physician, Tino Bowling MD I agree with the assessment and kdr plan of care. Disposition: 11/27/19 18:44 Hospitalization ordered by Edson Bush for Inpatient Admission. Preliminary diagnosis are Muscle weakness (generalized), Dyspnea, Tracheal Mass, Multiple pulmonary nodules. - Bed requested for Telemetry/MedSurg (Inpatient). - Status is Inpatient Admission. tr5 - Condition is Stable. - Problem is new. - Symptoms have worsened. UTI on Admission? No Signatures: Dispatcher [employer] EDMS Lizeth Marshall RN RN Tino Bowling MD MD kdr Therrien, Shelly, BLOCK MACHINE OPERATOR-C BLOCK MACHINE OPERATOR-Csnw Rodolfo Jung RN RN tr5 Corrections: (The following items were deleted from the chart) 11/27 19:28 18:44 Hospitalization Ordered by Edson Bush MD for Inpatient Admission. Preliminary diagnosis is Muscle weakness (generalized); Dyspnea; Tracheal Mass; Multiple pulmonary nodules. Bed requested for Telemetry/MedSurg (Inpatient). Status is Inpatient Admission. Condition is Stable. Problem is new. Symptoms have worsened. UTI on Admission? No. snw 21:07 19:28 11/27/2019 18:44 Hospitalization Ordered by Edson Bush MD for Inpatient tr5 Admission. Preliminary diagnosis is Muscle weakness (generalized); Dyspnea; Tracheal Mass; Multiple pulmonary nodules. Bed requested for Telemetry/MedSurg (Inpatient). Status is Inpatient Admission. Condition is Stable. Problem is new. Symptoms have worsened. UTI on Admission? No. mw
[2019-11-27] MEDS ORDERED: ENOXAPARIN 80 MG/0.8 ML SQ ONE (19:52)
[2019-11-27] MEDS ORDERED: NA CHLORIDE 0.9% 500 ML ONE (20:41)
[2019-11-27] MEDS ORDERED: ACETAMINOPHEN 500 MG TAB PO PRN (21:33)
[2019-11-27 22:00] LABS: Barbiturates NEGATIVE (NEGATIVE); Benzodiazepines POSITIVE (NEGATIVE); Cocaine NEGATIVE (NEGATIVE); METHAMPHETAM NEGATIVE (NEGATIVE); Methadone NEGATIVE (NEGATIVE); Opiates POSITIVE (NEGATIVE); Phencyclidine NEGATIVE (NEGATIVE); THC Cannibis NEGATIVE (NEGATIVE)
[2019-11-27] MEDS ORDERED: DIAZEPAM 5 MG TABLET PO PRN (22:05)
[2019-11-27] MEDS: NICOTINE 14 MG/PAT TD SCH (22:36)
[2019-11-28 04:05] LABS: Urine Appearance CLEAR; Urine Bilirubin NEGATIVE (NEG); Urine Blood NEGATIVE (NEG); Urine Color DK YELLOW; Urine Glucose NEGATIVE (NEG); Urine Protein NEGATIVE (NEG); Urine Specific Gravity >=1.030 (1.005-1.030); Urine Urobilinogen 0.2 mg/dL (0.2-1.0)
[2019-11-28 04:33] LABS: Urine Bacteria <20 /HPF (NONE SEEN); Urine Culture Reflex Order NOT NEEDED; Urine Mucus 3+ /HPF (NONE SEEN); Urine RBC <5 /HPF (NONE SEEN)
[2019-11-28 06:01] VITALS: BMI 29.3
[2019-11-28 06:06] LABS: Absolute Lymphocytes (CBC) 2.4 K/uL (0.7-4.9); Basophils % 0.4 % (0-1.3); Hematocrit 39.6 % (39.6-49.0); Lymphocytes % 24.8 % (15.3-44.8); MPV 9.2 fL (7.6-11.3); RBC Red Blood Cell Count 4.23 M/uL (4.33-5.43)
[2019-11-28 06:18] LABS: Potassium 3.9 mmol/L (3.5-5.1)
[2019-11-28] MEDS ORDERED: DIAZEPAM 5 MG TABLET PO PRN (06:27)
--- NOTE | 2019-11-28 06:44 | EKG ---
Test Date: 2019-11-27 Test Time: 14:49:46 Stone And Concrete Washer: KARTIK MEASUREMENT RESULTS: Intervals: Rate: 70 [place]: 336 QRSD: 90 QT: 400 QTc: 432 [place]: P: 45 [place]: 336 QRS: 40 T: 259 INTERPRETIVE STATEMENTS: Sinus rhythm with 1st degree AV block ST & T wave abnormality, consider inferior ischemia ST & T wave abnormality, consider anterolateral ischemia Abnormal ECG Compared to ECG 11/12/2019 15:14:42 No significant changes Electronically Signed On 11-28-19 06:43:32 CLIP ON SUNGLASSES INSPECTOR by Guerrero Cifuentes
[2019-11-28] MEDS ORDERED: dexAMETHasone 4 MG/ML VIAL IV ONE (08:56)
[2019-11-28] MEDS ORDERED: ISOSORBIDE MONO SR 60 MG TAB PO SCH (09:00)
[2019-11-28] MEDS ORDERED: COLESTIPOL 1 GM TAB PO SCH (09:00)
[2019-11-28] MEDS ORDERED: ATORVASTATIN 40 MG TAB PO SCH (09:00)
[2019-11-28] MEDS ORDERED: ASPIRIN 81 MG CHEWABLE TABLET PO SCH (09:00)
[2019-11-28] MEDS ORDERED: TICAGRELOR 90 MG TABLET PO SCH (09:00)
[2019-11-28] MEDS ORDERED: ASPIRIN EC 81 MG TAB PO SCH (09:00)
[2019-11-28] MEDS ORDERED: PNEUMOCOCCAL VACCINE 0.5 ML IMVAC ONE (09:00)
[2019-11-28] MEDS ORDERED: SOTALOL HCL 80 MG TAB PO SCH (09:00)
[2019-11-28] MEDS ORDERED: IRBESARTAN 150 MG TAB PO SCH (09:00)
[2019-11-28] MEDS ORDERED: LIDOCAINE 4% PATCH TOP SCH (09:00)
[2019-11-28] MEDS ORDERED: PARoxetine HCl 10 MG TAB PO SCH (09:00)
[2019-11-28] MEDS: NICOTINE 14 MG/PAT TD SCH (09:37)
[2019-11-28 10:25] VITALS: O2SAT 96
[2019-11-28 12:23] VITALS: BP 113/56; TEMP 97.1
--- NOTE | 2019-11-28 12:33 | P.CNS ---
Date of Consult: 11/28/19 Reason for Consult: Pulmonary nodules Chief Complaint: Multiple pulmonary nodules History of Present Illness: The patient is 78 years of age is a history of a COPD admitted with sudden onset of weakness and lethal blacked out he has been diagnosed for denies any fever chills cough shortness of breath denies any palpitations he has a significant history of coronary artery disease also sees a metal forger's assistant as an outpatient is scheduled to have a stress test done patient is studied continues to smoke Allergies No Known Drug Allergies Allergy (Verified 11/27/19 21:16) none No Known Allergies Allergy (Uncoded 07/04/18 22:22) Unknown Home Medications: Ranolazine [Ranexa] 1,000 mg PO BID 04/10/14 Pantoprazole Sodium 40 mg PO DAILY 01/28/18 Sotalol HCl [Betapace] 80 mg PO BID 01/28/18 diazePAM [Diazepam] 5 mg PO BEDTIME PRN 01/28/18 Digoxin [Lanoxin*] 1 tab PO BEDTIME 07/17/18 Aspirin 1 tab PO DAILY 11/27/19 Atorvastatin Calcium 1 tab PO DAILY 11/27/19 Colestipol HCl [Colestid] 1 tab PO DAILY 11/27/19 Irbesartan [Avapro*] 1 tab PO BID 11/27/19 Isosorbide Mononitrate [Isosorbide Mononitrate ER] 1 tab PO DAILY 11/27/19 Paroxetine HCl [Paxil] 1 tab PO DAILY 11/27/19 Ticagrelor [Brilinta*] 1 tab PO BID 11/27/19 - Past Medical/Surgical History Diabetic: No -: HTN -: Hyperlipidemia -: copd -: HI -: chronic pain back -: neuropathy -: irregular heart beat -: Coronary stents x7 -: right knee surgery -: throat surgery -: pacemaker -: joseph -: skin cancer in nose, leg and back removed - Family History Mother Medical History: Cancer Notes: stomach cancer Father Medical History: Heart disease Notes: CHF Brother Medical History: Heart disease - Social History Smoking Status: Current every day smoker Alcohol use: No CD- Drugs: No Caffeine use: No Place of Residence: Home Review of Systems 10-point ROS is otherwise unremarkable General: Weakness Respiratory: Shortness of Breath Neurological: Weakness Physical Examination Temp Pulse Resp BP Pulse Ox 97.1 F 78 17 113/56 L 97 11/28/19 12:00 11/28/19 12:00 11/28/19 12:00 11/28/19 12:00 11/28/19 12:00 General: Alert, Oriented x3 Neck: Supple Respiratory: Clear to auscultation bilaterally Cardiovascular: No edema, Regular rate/rhythm Gastrointestinal: Normal bowel sounds, Soft and benign Laboratory Data (last 24 hrs) 11/27/19 15:24: PT 12.3, INR 1.04 11/27/19 15:24: WBC 7.7, Hgb 14.1, Hct 43.1, Plt Count 184 11/27/19 15:24: Sodium 143, Potassium 4.4, BUN 16, Creatinine 1.47 H, Glucose 130 H, Magnesium 2.2, Total Bilirubin 1.0, AST 13 L, ALT 23, Alkaline Phosphatase 87 - Problems (1) Abnormal CT scan of lung Current Visit: Yes Status: Acute Plan: The patient is 78 years of age admitted with performed weakness syncopal attacked was found to have pulmonary nodules most likely cancer in the upper lobe is an active smoker deserves a <1 in the right lower lobe a small soft tissue density in the distal aspect of right trachea A 15 millimeter left upper lobe nodule may represent neoplasm 3 millimeter nonspecific right lower lobe nodule 9 millimeter soft tissue structure is present within the distal right aspect of the trachea. Endoscopy is recommended The patient has a soft tissue density in the trachea which is confirmed Probably side effect on medication need an outpatient workup with a PET scan and a pulmonary function testing possibly a bronchoscopy to evaluate the soft tissue lesion labs reviewed laboratory data reviewed in addition patient is on burning dilated after be stopped at least 4-5 days prior to any diagnostic procedures discussed with the patient about the possibility of lung cancer
--- NOTE | 2019-11-28 13:47 | EKG ---
Test Date: 2019-11-28 Test Time: 11:31:26 Pari Mutuel Clerk: HARPER MEASUREMENT RESULTS: Intervals: Rate: 72 NC: 272 QRSD: 94 QT: 380 QTc: 416 [place]: P: 47 NC: 272 QRS: 16 T: 202 INTERPRETIVE STATEMENTS: Sinus rhythm with 1st degree AV block ST & T wave abnormality, consider inferior ischemia ST & T wave abnormality, consider anterolateral ischemia Abnormal ECG Compared to ECG 11/27/2019 14:49:46 No significant changes Electronically Signed On 11-28-19 13:46:46 SIGNWRITER by Guerrero Cifuentes
--- NOTE | 2019-11-28 15:41 | P.SSS ---
Patient History Date of Service: 11/28/19 Reason for admission: Multiple pulmonary nodules History of Present Illness: MR. ELLISON IS SMOKER WITH CAD, ANXIETY, HTN, DJD, ORTHOSATIC HYPOTENSION WHO COMES AFTER FALL AT HOME WHERE HIS LEGS GAVE OUT. USUSAL HE WANTS TO SIGN AGAINST MEDICAL ADVISE. HE IS MEDICALLY STABLE. HE HAS A SMALL INTRATRACHEAL MASS AND TWO OTHER NODULES IN LUNGS HE NEEDS BRONCHOSCOPY BUT WANTS EVERYTHING DONE IN ORTHODOX. HE IS DISCHARGED AFTER AMBULATION. HE WILL CALL DR. COLMENARES TO GET A PULMONARY DOCTOR HE MAY LIKE. HE LIKES THAT PLAN. Allergies No Known Drug Allergies Allergy (Verified 11/27/19 21:16) none No Known Allergies Allergy (Uncoded 07/04/18 22:22) Unknown Home medications list reviewed: Yes Home Medications: Ranolazine [Ranexa] 1,000 mg PO BID 04/10/14 Sotalol HCl [Betapace*] 80 mg PO BID 01/28/18 diazePAM [Diazepam] 5 mg PO BEDTIME PRN 01/28/18 Digoxin [Lanoxin*] 1 tab PO BEDTIME 07/17/18 Aspirin 1 tab PO DAILY 11/27/19 Atorvastatin Calcium 1 tab PO DAILY 11/27/19 Colestipol HCl [Colestid] 1 tab PO DAILY 11/27/19 Irbesartan [Avapro*] 1 tab PO BID 11/27/19 Isosorbide Mononitrate [Isosorbide Mononitrate ER] 1 tab PO DAILY 11/27/19 Paroxetine HCl [Paxil] 1 tab PO DAILY 11/27/19 Ticagrelor [Brilinta*] 1 tab PO BID 11/27/19 Lidocaine 4% Patch [Lidoderm 5% Patch*] 2 patch TOP DAILY patch 11/28/19 - Past Medical/Surgical History Has patient received pneumonia vaccine in the past: No Diabetic: No -: HTN -: Hyperlipidemia -: copd -: NC -: chronic pain back -: neuropathy -: irregular heart beat -: Coronary stents x7 -: right knee surgery -: throat surgery -: pacemaker -: joseph -: skin cancer in nose, leg and back removed - Family History Mother -: Cancer Notes: stomach cancer Father -: Heart disease Notes: CHF Brother -: Heart disease - Social History Smoking Status: Current every day smoker Alcohol use: No CD- Drugs: No Caffeine use: No Place of Residence: Home Review of Systems 10-point ROS is otherwise unremarkable General: Weakness Physical Examination - Vital Signs Temperature: 97.1 F Blood Pressure: 113/56 Pulse: 78 Respirations: 17 Pulse Ox (%): 97 - Physical Exam General: Mild distress (KNEE PAIN) HEENT: Atraumatic, PERRLA, Mucous membr. moist/pink, EOMI, Sclerae nonicteric Neck: Supple, 2+ carotid pulse no bruit, No LAD, Without JVD or thyroid abnormality Respiratory: Clear to auscultation bilaterally, Normal air movement Cardiovascular: Regular rate/rhythm, Normal S1 S2 Gastrointestinal: Normal bowel sounds, No tenderness Musculoskeletal: No tenderness Integumentary: No rashes Neurological: Normal gait, Normal speech, Normal strength at 5/5 x4 extr, Normal tone, Normal affect Lymphatics: No axilla or inguinal lymphadenopathy - Studies Laboratory Data (last 24 hrs) 11/27/19 15:24: PT 12.3, INR 1.04 11/27/19 15:24: WBC 7.7, Hgb 14.1, Hct 43.1, Plt Count 184 11/27/19 15:24: Sodium 143, Potassium 4.4, BUN 16, Creatinine 1.47 H, Glucose 130 H, Magnesium 2.2, Total Bilirubin 1.0, AST 13 L, ALT 23, Alkaline Phosphatase 87 - Diagnosis (Problem(s)) (1) Multiple pulmonary nodules Status: Suspected Plan: HE MAY HAVE LUNG CANCER. HE IS A SMOKER AND KNEW THE RISK. HE NOW SAYS HE WILL QUIT. PLAN ABOVE. (2) Dehydration Onset Date: 01/29/18 Status: Acute Plan: HE GETS ORTHOSTATIS RECURRENTLY. HE DOES NOT HAVE SIGNS OR LAB SUGGESTIVE OF ELDER'S HE IS LOT BETTER NOW. HE IS NOT TAKING DIURETICS. STABLE FOR HOME WITH FU. - Disposition Disposition: ROUTINE DISCHARGE Condition: FAIR
[2019-11-28] MEDS ORDERED: ENOXAPARIN 40 MG/0.4 ML SQ SCH (17:00)
[2019-11-28] MEDS ORDERED: DIGOXIN 0.125 MG TABLET PO SCH (21:00)
== END 2019-11-28 14:47 | disposition home or self-care (01) ==
LOC: ER 14:45 → ERHOLD 18:52 → INTOOBSV 18:52 → 4TH 20:37
PROVIDERS: ADMIT Internal Medicine; ATTEND Internal Medicine
DX: R91.8 Other nonspecific abnormal finding of lung field (principal); E86.0 Dehydration; I25.10 Atherosclerotic heart disease of native coronary artery without angina pectoris; F41.9 Anxiety disorder, unspecified; I10 Essential (primary) hypertension; M19.90 Unspecified osteoarthritis, unspecified site; I25.2 Old myocardial infarction; Z95.5 Presence of coronary angioplasty implant and graft; F17.210 Nicotine dependence, cigarettes, uncomplicated
CPT/HCPCS: 96361; 93005 ×2; 85025 ×2; 81001; 80048 ×2; 36415; 83735; 85610; 80162; 82947; 80076; 80307 ×8; 84484 ×3; 83880; 70450; 72125; 71260; 71045; 93880; 96375; 96372; 96374; 99285; Q9967; J2550; J1650; J7040; G0378 ×3